=== PATIENT | female | born 1960 | race African-American/Black ===

== ENCOUNTER 2016-05-11 17:53 | Emergency (ER) | payer OTHER ==
[2016-05-11] MEDS ORDERED: TORADOL IM ONE (19:06)
[2016-05-11] MEDS ORDERED: PHENERGAN IM ONE (19:06)
[2016-05-11] MEDS ORDERED: BENADRYL IM ONE (19:06)
--- NOTE | 2016-05-11 19:09 | PROVIDER DOCUMENTATION ---
HPI-Headache - General Chief Complaint: Headache Stated Complaint: HEADACHE Time Seen by Provider: 05/11/16 18:46 Source: patient Allergies/Adverse Reactions: Patient Allergies Allergy/AdvReac Type Severity Reaction Status Date / Time metformin AdvReac DIARRHEA Verified 05/11/16 18:39 pantoprazole sodium * AdvReac DIARRHEA Verified 05/11/16 18:39 [From Protonix] Home Medications: Amlodipine [Norvasc] 5 mg PO DAILY 04/29/14 Hydrochlorothiazide 12.5 mg PO HS 04/29/14 Lisinopril 20 mg PO HS 04/29/14 Clonidine [Catapres] 0.1 mg PO HS 09/14/14 Insulin Glargine [Lantus] 25 unit SUBQ QHS 11/25/14 Multivitamin/Iron/Folic Acid [Multi Complete-Iron Tablet] 1 each PO DAILY PRAVAstatin [Pravachol] 40 mg PO QHS 11/25/14 Sitagliptin Phos/Metformin HCl [Janumet 50-1,000 mg Tablet] 1 each PO BID - History of Present Illness-Headache Nature of Presenting Problem: 55 y/o WF c/o R sided VILLA x 1 day. Pt states that she gets these VILLA in same pattern from time to time. Pt states VILLA is 7/10, and achy in nature. States took tylenol today, but did not help. Denies any N/V, vision changes. Review of Systems - Adult - REVIEW OF SYSTEMS - ADULT Constitutional: reports: no symptoms reported. denies: chills, fever Eyes: reports: no symptoms reported. denies: blurred vision, double vision Ears, Nose, Mouth & Throat: reports: no symptoms reported. denies: ear pain, nose pain Cardiovascular: reports: no symptoms reported. denies: chest pain, palpitations Respiratory: reports: no symptoms reported. denies: dyspnea on exertion, shortness of breath Gastrointestinal: reports: no symptoms reported. denies: nausea, vomiting Genitourinary: reports: no symptoms reported. denies: dysuria, frequency Musculoskeletal: reports: no symptoms reported. denies: joint pain, joint swelling Integumentary: reports: no symptoms reported. denies: nail changes, rash Neurological: reports: headache/migraines. denies: numbness, paresthesia Psychiatric: reports: no symptoms reported Endocrine: reports: no symptoms reported. denies: cold intolerance, heat intolerance Hematologic/Lymphatic: reports: no symptoms reported. denies: easy bruising, prolonged bleeding Allergic/Immunologic: reports: no symptoms reported All Other Systems: Reviewed and Negative Past History - Adult - PAST MEDICAL HISTORY-ADULT Review of Records: reports: Nursing Assessment Review, Medications Reviewed Major Childhood Illnesses: reports: denies history Cardiovascular: reports: HTN Respiratory: reports: denies history Gastrointestinal: reports: GERD, other (constipation) Obstetrical/Gynecological: reports: denies history Genitourinary: reports: denies history Musculoskeletal: reports: denies history Neurological: reports: headaches/migraines Endocrine/Immune: reports: Diabetes Other Conditions: reports: denies history - PRIOR SURGERIES/PROCEDURES Surgical/Procedure History: reports: hysterectomy - IMMUNIZATION STATUS Childhood Immunizations: UTD Flu Vaccine: UTD - FAMILY HISTORY Family History: reviewed, not pertinent Physical Exam- Neurological - Physical Exam-Neuro Initial Vital Signs Reviewed: Yes General Appearance: alert, mild distress Eye Exam: bilateral eye: normal inspection, PERRL, EOMI HENMT: normocephalic/atraumatic, moist mucous membranes. negative: hearing deficit Head Injury: no evidence of injury Neck: full range of motion, supple, normal inspection. negative: Brudzinski's sign Respiratory: no respiratory distress Abdominal Exam: normal bowel sounds, non tender, soft. negative: distended, guarding, rigid Extremity: normal range of motion, normal gait, normal capillary refill. negative: abnormal NV exam nurse discharge Exam: normal hearing, normal speech, PERRL. negative: abnormal eye position , abnormal pupil position, abnormal speech, facial asymmetry, facial droop, facial paresthesias, facial weakness, gaze palsy, hearing deficit (R), hearing deficit (L), tongue deviation to R, tongue deviation to L Coordination/Gait: normal gait Motor/Sensory: no motor deficit, no sensory deficit Neurologic: nurse discharge II-XII nml as tested. negative: aphasia, facial droop, focal weakness, motor weakness, sensory deficit Integumentary: normal color, normal turgor, warm/dry Psych/Mental Status: AL, normal mood/affect, normal thought content, normal thought process, oriented x 3 Progress - PLAN OF CARE/RESULTS Progress/Plan/Lab Results: Orders Category Date Time Status Clonidine [Catapres] Med 05/11/16 19:14 Discontinued 0.2 mg PO NOW ONE Diphenhydramine [Benadryl] Med 05/11/16 19:06 Discontinued 25 mg IM NOW ONE Hydralazine [Apresoline] Med 05/11/16 19:14 Discontinued 50 mg PO NOW ONE Ketorolac [Toradol] Med 05/11/16 19:06 Discontinued 60 mg IM NOW ONE Promethazine [Phenergan] Med 05/11/16 19:06 Discontinued 25 mg IM NOW ONE Vital Signs Temp Pulse Resp BP Pulse Ox 05/11/16 20:22 57 L 16 161/54 98 05/11/16 19:18 58 L 18 231/62 99 05/11/16 18:11 98.1 F 60 18 208/56 99 metformin Adverse Reaction (Verified 05/11/16 18:39) DIARRHEA pantoprazole sodium * [From Protonix] Adverse Reaction (Verified 05/11/16 18:39) DIARRHEA Amlodipine [Norvasc] 5 mg PO DAILY 04/29/14 Hydrochlorothiazide 12.5 mg PO HS 04/29/14 Lisinopril 20 mg PO HS 04/29/14 Clonidine [Catapres] 0.1 mg PO HS 09/14/14 Insulin Glargine [Lantus] 25 unit SUBQ QHS 11/25/14 Multivitamin/Iron/Folic Acid [Multi Complete-Iron Tablet] 1 each PO DAILY PRAVAstatin [Pravachol] 40 mg PO QHS 11/25/14 Sitagliptin Phos/Metformin HCl [Janumet 50-1,000 mg Tablet] 1 each PO BID Saline Nasal Drops [[place] Nasal Drops] 2 drop CIERA PRN PRN #1 bottle 03/23/15 Butalbital/APAP/Caffeine [Fioricet] 1 each PO Q4H PRN PRN #10 tablet 05/11/16 Discussed importance of f/u with PCP for further management of medications and discussed VILLA management with pt. Departure - Departure Time of Disposition Order: 19:07 DIAGNOSIS: Headache Qualifiers: Headache type: unspecified Headache chronicity pattern: acute headache Intractability: not intractable Qualified Code(s): R51 - Headache Disposition: HOME 01 Certified Medical Emergency: Emergent Condition: Stable Additional Instructions: Follow up with specialist for further management. Take medications as directed. Return if symptoms get worse. ED Follow Up Instructions: You have been treated by a care provider in the Emergency Department. These instructions are being provided to you so you can have an understanding of how to care for yourself upon discharge. Upon discharge from the Emergency Department, you are responsible for making arrangements for follow-up care by a physician of your choice. Take all prescribed medications as directed. Return to the Emergency Department immediately for any new or worsening symptoms. You may call the Physician Referral phone number at [phone] to obtain a list of Physicians who are taking new patients. Prescriptions: Butalbital/APAP/Caffeine [Fioricet] 1 each PO Q4H PRN PRN #10 tablet PRN Reason: Headache Referrals: Ora Swain MD [Primary Care Provider] - Kamran Latif III, MD [STAFF PHYSICIAN] - Instructions: Migraine Headache, [id number] Attestation - Physician/ Mid-level Attestation Patient care was provided by Mid-level provider (SENIOR VICE PRESIDENT/PA):: Yes Mid-level provider:: Michelle Lynch Mid-level documentation review:: The Mid-level provider documentation, treatment plan and medical decision making was reviewed by the physician who agrees with all treatment and medical decision making by the P.
[2016-05-11] MEDS ORDERED: CATAPRES PO ONE (19:14)
[2016-05-11] MEDS ORDERED: APRESOLINE PO ONE (19:14)
[2016-05-11 20:23] VITALS: BP 161/54
== END 2016-05-11 20:23 | disposition home or self-care (01) ==
LOC: ED 17:53
DX: R51 Headache (principal); E11.9 Type 2 diabetes mellitus without complications; Z79.4 Long term (current) use of insulin; Z79.899 Other long term (current) drug therapy
CPT/HCPCS: 96372; J1200; J1885; J2550

== ENCOUNTER 2016-07-19 02:00 | Emergency (ER) | payer OTHER ==
[2016-07-19] MEDS ORDERED: ZOFRAN IV ONE ×2 (02:41→03:49)
[2016-07-19] MEDS ORDERED: DILAUDID IV ONE (02:41)
[2016-07-19] MEDS ORDERED: TORADOL IV ONE (02:41)
--- NOTE | 2016-07-19 02:44 | PROVIDER DOCUMENTATION ---
HPI-Abdominal Pain/GI Problem <Jonny Reynolds JordinDana - Last Filed: 07/19/16 06:06> - General Source: patient - History of Present Illness-ABD Nature of Presenting Problems: 56 year old F presents to the ED with a cc of lower ABD pain. Pt states that she woke up around 0100. PT denies nausea, vomiting, diarrhea, and urinary complaints. PT states last bowel movement was yesterday. Abdominal Pain Onset Location: reports: RLQ, LLQ Pain Radiation: reports: no radiation Quality of Pain: reports: aching Severity in ED: reports: moderate Onset/Duration: reports: 1-3 hours ago Timing: reports: still present Activities at Onset: reports: sleep Bruising or Bleeding Gums?: No Similar Symptoms Previously?: No Recently seen or treated by another doctor?: No <Francoise Robin - Last Filed: 07/19/16 18:26> - General Chief Complaint: Constipation Stated Complaint: ABD PAIN Time Seen by Provider: 07/19/16 02:07 Allergies/Adverse Reactions: Patient Allergies Allergy/AdvReac Type Severity Reaction Status Date / Time metformin AdvReac DIARRHEA Verified 07/19/16 02:39 pantoprazole sodium * AdvReac DIARRHEA Verified 07/19/16 02:39 [From Protonix] Home Medications: Home Medication List Medication Instructions Recorded Confirmed Last Taken Type Amlodipine [Norvasc] 5 mg PO DAILY 04/29/14 07/19/16 07/18/16 History Hydrochlorothiazide 12.5 mg PO HS 04/29/14 07/19/16 07/18/16 History Lisinopril 20 mg PO HS 04/29/14 07/19/16 07/18/16 History Clonidine [Catapres] 0.1 mg PO HS 09/14/14 07/19/16 07/18/16 History Insulin Glargine [Lantus] 25 unit SUBQ QHS 11/25/14 07/19/16 07/18/16 History Multivitamin/Iron/Folic Acid 1 each PO DAILY 11/25/14 07/19/16 07/18/16 History [Multi Complete-Iron Tablet] PRAVAstatin [Pravachol] 40 mg PO QHS 11/25/14 07/19/16 07/18/16 History Sitagliptin Phos/Metformin HCl 1 each PO BID 11/25/14 07/19/16 07/18/16 History [Janumet 50-1,000 mg Tablet] Aspirin 81 mg PO DAILY 07/19/16 07/19/16 07/18/16 History Omeprazole 40 mg PO DAILY 07/19/16 07/19/16 07/18/16 History Promethazine [Phenergan] 25 mg PO Q6H PRN PRN #20 tablet 07/19/16 Unknown Rx Review of Systems - Adult - REVIEW OF SYSTEMS - ADULT Constitutional: denies: chills, fever Eyes: reports: no symptoms reported Ears, Nose, Mouth & Throat: reports: no symptoms reported Cardiovascular: reports: no symptoms reported Respiratory: denies: cough, shortness of breath Gastrointestinal: reports: abdominal pain. denies: nausea, vomiting Genitourinary: denies: dysuria, hematuria Musculoskeletal: reports: no symptoms reported Integumentary: reports: no symptoms reported Neurological: reports: no symptoms reported Psychiatric: reports: no symptoms reported Endocrine: reports: no symptoms reported Hematologic/Lymphatic: reports: no symptoms reported Allergic/Immunologic: reports: no symptoms reported All Other Systems: Reviewed and Negative <Francoise Robin - Last Filed: 07/19/16 18:26> Past History - Adult - PAST MEDICAL HISTORY-ADULT Review of Records: reports: Nursing Assessment Review, Medications Reviewed Major Childhood Illnesses: reports: denies history Cardiovascular: reports: HTN Respiratory: reports: denies history Gastrointestinal: reports: GERD, other (constipation) Obstetrical/Gynecological: reports: denies history Genitourinary: reports: denies history Musculoskeletal: reports: denies history Neurological: reports: headaches/migraines Endocrine/Immune: reports: Diabetes Other Conditions: reports: denies history - PRIOR SURGERIES/PROCEDURES Surgical/Procedure History: reports: hysterectomy - IMMUNIZATION STATUS Childhood Immunizations: UTD Flu Vaccine: UTD - FAMILY HISTORY Family History: reviewed, not pertinent - SOCIAL HISTORY Smoking: non-smoker Substance Use: none/never Alcohol Use Frequency: never <Francoise Robin - Last Filed: 07/19/16 18:26> Physical Exam-General - PHYSICAL EXAM-ADULT Initial Vital Signs Reviewed: Yes - CONSTITUTIONAL General Appearance: alert, mild distress - RESPIRATORY Respiratory: chest non-tender, lungs clear, normal breath sounds - CARDIOVASCULAR Cardiovascular: normal peripheral pulses, regular rate, rhythm, no edema - GASTROINTESTINAL (ABDOMEN) Abdominal Exam: normal bowel sounds, tenderness (LLQ) - MUSCULOSKELETAL Back Exam: CVA tenderness (left) - SKIN Integumentary: normal color, normal turgor, warm/dry - PSYCHIATRIC Psych/Mental Status: normal mood/affect, normal thought content, normal thought process, oriented x 3 <Francoise Robin - Last Filed: 07/19/16 18:26> Progress - REASSESSMENT Reassessment #1 Time Reassessed: 05:34 (pain is gone however pt developed vomiting that persists despite zofran 8 mg IV) Status: other - CT/MRI 1 CT Study: Abdomen Impression: Normal - CHANGE OF SHIFT REPORT (ED Provider) Report Given and Care Transferred to:: Dr Ge Time of Transfer: 06:01 Items Pending: Other (response to medications) <Jonny Reynolds - Last Filed: 07/19/16 06:06> Departure - Departure Certified Medical Emergency: Emergent <Jonny Reynolds - Last Filed: 07/19/16 06:06> - Departure Time of Disposition Order: 06:13 Certified Medical Emergency: Emergent <LobitoFrancoise - Last Filed: 07/19/16 18:26> - Departure DIAGNOSIS: Vomiting Qualifiers: Vomiting type: unspecified Vomiting Intractability: non-intractable Nausea presence: with nausea Qualified Code(s): R11.2 - Nausea with vomiting, unspecified Disposition: HOME 01 Condition: Good Additional Instructions: ED Follow Up Instructions: You have been treated by a care provider in the Emergency Department. These instructions are being provided to you so you can have an understanding of how to care for yourself upon discharge. Upon discharge from the Emergency Department, you are responsible for making arrangements for follow-up care by a physician of your choice. Take all prescribed medications as directed. Return to the Emergency Department immediately for any new or worsening symptoms. You may call the Physician Referral phone number at [phone] to obtain a list of Physicians who are taking new patients. Prescriptions: Promethazine [Phenergan] 25 mg PO Q6H PRN PRN #20 tablet PRN Reason: Nausea And Vomiting Referrals: Ora Swain MD [Primary Care Provider] - Instructions: Nausea and Vomiting Attestation - Scribe Verification/Attestation Scribe:: Francoise Robin Acting as Scribe for:: Jonny Reynolds Scribe documention review:: This chart was documented by a scribe and accurately reflects the service the provider performed and the decisions made by the provider. <Francoise Robin - Last Filed: 07/19/16 18:26> Physician Attestation
[2016-07-19 03:37] LABS: MANUAL DIFF NEEDED? NO
[2016-07-19 03:42] LABS: BASO% 0.1 % (0.0-0.8); EOS# 0.06 X1000 (0.0-0.7); EOS% 0.7 % (0.0-10.0); HEMATOCRIT 34.5 % (37.0-47.0); HEMOGLOBIN 10.9 g/dL (12.0-16.0); IMM GRAN# 0.03 X1000 (0.0-0.04); IMM GRAN% 0.3 % (0.0-0.5); LYMPH% 30.6 % (20.5-51.1); MCH 25.7 PG (27-31); MCHC 31.6 g/dL (33-37); MCV 81.4 FL (81-99); MONO# 0.66 X1000 (0.11-0.59); MONO% 7.2 % (1.7-9.3); MPV 11.8 FL (7.4-10.4); NEUT% 61.1 % (42.2-75.2); PLT 203 X1000 (130-400); RBC 4.24 XMIL (4.2-5.4)
[2016-07-19 04:02] LABS: ALBUMIN 3.5 g/dL (3.5-5.0); CALCIUM 8.9 mg/dL (8.8-10.2); POTASSIUM 3.7 mmol/L (3.5-5.1); TOTAL BILIRUBIN 0.22 mg/dL (0.20-1.00); TOTAL PROTEIN 7.1 g/dL (6.3-8.3)
[2016-07-19 04:19] LABS: URINE CULTURE NEEDED? NO; URINE MICRO REVIEW NEEDED? NO; URINE SOURCE CLEAN CATCH
[2016-07-19 04:20] LABS: BILIRUBIN URINE NEGATIVE (NEGATIVE); BLOOD URINE TRACE (NEGATIVE); COLOR STRAW; GLUCOSE URINE 100 mg/dL (NEGATIVE); LEUKOCYTES URINE NEGATIVE (NEGATIVE); NITRITE URINE NEGATIVE (NEGATIVE); PROTEIN URINE 300 mg/dL (NEGATIVE); SP GRAVITY URINE 1.008; TURBIDITY URINE CLEAR (CLEAR); UROBILINOGEN URINE NORMAL (NORMAL)
[2016-07-19 04:21] LABS: UR EPITHELIAL CELLS <10 /HPF (<10); URINE BACTERIA NEGATIVE /HPF; URINE RBC <10 /HPF (<10); URINE WBC <10 /HPF (<10)
[2016-07-19] MEDS ORDERED: SODIUM CHLORIDE 0.9% INJ ONE (05:22)
[2016-07-19] MEDS ORDERED: PHENERGAN IV ONE (05:22)
[2016-07-19] MEDS ORDERED: NS 500 ML IV ONE (05:22)
[2016-07-19 05:58] VITALS: BP 140/75
--- NOTE | 2016-07-19 08:02 | Diag Imaging Result Document ---
PROCEDURE NAME: ABDOMEN FLAT/UPRIGHT - 07/19/2016 ABDOMEN, 2 VIEWS: COMPARISON: 09/01/2015. FINDINGS: There is a nonobstructive bowel gas pattern. No free air or abnormal calcifications. IMPRESSION: No acute disease.
--- NOTE | 2016-07-19 09:17 | Diag Imaging Result Document ---
PROCEDURE NAME: ABDOMEN/PELVIS W/O CONTRAST - 07/19/2016 CT ABDOMEN AND PELVIS WITHOUT CONTRAST: COMPARISON: 11/04/2014. FINDINGS: Mild bronchial wall thickening and reticular opacities at the lung bases are again noted and are essentially stable as compared to the previous study, assumed to be chronic. There is a small amount of pericardial fluid that is essentially stable. There is a nonspecific 1.2 cm renal hypodensity at the upper pole on the left that is stable. It is likely a cyst as was seen on the previous study. There are no renal or ureteral stones identified, and there is no evidence of acute obstructive uropathy. The urinary bladder is unremarkable. The appendix appears normal. Otherwise, no focal inflammatory changes, free abdominal gas, or free fluid is identified. There is no evidence of bowel obstruction. There is no evidence of significant diverticulosis coli or diverticulitis. The remainder of the solid viscera of the abdomen and pelvis and the remainder of the GI tract is essentially unremarkable. IMPRESSION: Stable abdomen with no definite acute pathology.
== END 2016-07-19 06:55 | disposition home or self-care (01) ==
LOC: ED 02:00
DX: R11.2 Nausea with vomiting, unspecified (principal); R10.31 Right lower quadrant pain; R10.32 Left lower quadrant pain; K59.00 Constipation, unspecified; R10.814 Left lower quadrant abdominal tenderness; I10 Essential (primary) hypertension; K21.9 Gastro-esophageal reflux disease without esophagitis; E11.9 Type 2 diabetes mellitus without complications; Z79.899 Other long term (current) drug therapy; Z79.82 Long term (current) use of aspirin; Z79.4 Long term (current) use of insulin
CPT/HCPCS: 74020; 74176; 80053; 81001; 83690; 85025; J1170; J1885; J2405; J2550; J7040

== ENCOUNTER 2016-11-27 08:12 | Inpatient (IN) ==
[2016-11-27] MEDS ORDERED: NS 1,000 ML IV ONE (08:48)
[2016-11-27 09:47] LABS: MANUAL DIFF NEEDED? NO; URINE CULTURE NEEDED? NO; URINE MICRO REVIEW NEEDED? NO; URINE SOURCE CLEAN CATCH
[2016-11-27 09:48] LABS: BILIRUBIN URINE NEGATIVE (NEGATIVE); BLOOD URINE TRACE (NEGATIVE); COLOR YELLOW; GLUCOSE URINE TRACE mg/dL (NEGATIVE); LEUKOCYTES URINE NEGATIVE (NEGATIVE); NITRITE URINE NEGATIVE (NEGATIVE); PROTEIN URINE 300 mg/dL (NEGATIVE); TURBIDITY URINE HAZY (CLEAR); UR EPITHELIAL CELLS <10 /HPF (<10); URINE BACTERIA NEGATIVE /HPF; URINE RBC <10 /HPF (<10); URINE WBC <10 /HPF (<10); UROBILINOGEN URINE NORMAL (NORMAL)
[2016-11-27 09:49] LABS: EOS# 0.05 X1000 (0.0-0.7); EOS% 0.5 % (0.0-10.0); HEMOGLOBIN 11.5 g/dL (12.0-16.0); IMM GRAN# 0.03 X1000 (0.0-0.04); IMM GRAN% 0.3 % (0.0-0.5); LYMPH# 1.86 X1000 (1.2-3.4); LYMPH% 19.9 % (20.5-51.1); MCHC 31.9 g/dL (33-37); MCV 81.4 FL (81-99); MONO# 0.62 X1000 (0.11-0.59); MONO% 6.6 % (1.7-9.3); MPV 12.5 FL (7.4-10.4); NEUT% 72.7 % (42.2-75.2); PLT 198 X1000 (130-400); RBC 4.42 XMIL (4.2-5.4)
[2016-11-27 10:09] LABS: ALBUMIN 3.1 g/dL (3.5-5.0); CALCIUM 8.6 mg/dL (8.8-10.2); MAGNESIUM 1.9 mg/dL (1.5-2.7); POTASSIUM 4.3 mmol/L (3.5-5.1); TOTAL BILIRUBIN 0.29 mg/dL (0.20-1.00); TOTAL PROTEIN 6.2 g/dL (6.3-8.3)
--- NOTE | 2016-11-27 10:50 | PROVIDER DOCUMENTATION ---
This chart was entered by Abdi Romo Scribe, acting as scribe for Shell Dye MD. HPI-Abdominal Pain/GI Problem - General Chief Complaint: Diarrhea Stated Complaint: ABD PAIN,DIARRHEA Time Seen by Provider: 11/27/16 08:23 Source: patient Allergies/Adverse Reactions: Patient Allergies Allergy/AdvReac Type Severity Reaction Status Date / Time metformin AdvReac DIARRHEA Verified 11/27/16 09:47 pantoprazole sodium * AdvReac DIARRHEA Verified 11/27/16 09:47 [From Protonix] Home Medications: Home Medication List Medication Instructions Recorded Confirmed Last Taken Type Amlodipine [Norvasc] 5 mg PO DAILY 04/29/14 10/17/16 10/17/16 History Hydrochlorothiazide 12.5 mg PO HS 04/29/14 10/17/16 10/16/16 History Lisinopril 20 mg PO HS 04/29/14 10/17/16 10/16/16 History Clonidine [Catapres] 0.1 mg PO HS 09/14/14 10/17/16 10/16/16 History Insulin Glargine [Lantus] 25 unit SUBQ QHS 11/25/14 10/17/16 10/16/16 History Multivitamin/Iron/Folic Acid 1 each PO DAILY 11/25/14 10/17/16 10/17/16 History [Multi Complete-Iron Tablet] PRAVAstatin [Pravachol] 40 mg PO QHS 11/25/14 10/17/16 10/16/16 History Sitagliptin Phos/Metformin HCl 1 each PO BID 11/25/14 10/17/16 10/17/16 History [Janumet 50-1,000 mg Tablet] Aspirin 81 mg PO DAILY 07/19/16 10/17/16 10/17/16 History Omeprazole 40 mg PO DAILY 07/19/16 10/17/16 10/17/16 History Promethazine [Phenergan] 25 mg PO Q6H PRN PRN #20 tablet 07/19/16 10/17/1610/17 Rx Betamethasone/Propylene Glyc 15 gm TP BID #1 cream..g. 10/17/16 Unknown Rx [Diprolene AF 0.05% Cream] - History of Present Illness-ABD Nature of Presenting Problems: Patient is a 56 y/o F that presents with generalized abdominal cramping with diarrhea x 24 hours. No n/v, fever/chills, or urinary symptoms. 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 She has had 10 plus episodes of diarrhea. Denies recent antibiotic use. Patient has been feeling bad since August of this year. Abdominal Pain Onset Location: reports: generalized abdomen Pain Radiation: reports: no radiation Quality of Pain: reports: aching, cramping Severity in ED: reports: moderate Onset/Duration: reports: abrupt, 24 hours ago Timing: reports: still present, constant Activities at Onset: reports: none Modifying Factors: improves with: nothing Associated Symptoms: reports: diarrhea. denies: back/neck pain, chest pain, diaphoresis, dizziness, fever/chills, genitourinary problems, nausea, shortness of breath, vomiting Similar Symptoms Previously?: No Recently seen or treated by another doctor?: No Review of Systems - Adult - REVIEW OF SYSTEMS - ADULT Constitutional: denies: chills, fever Eyes: reports: no symptoms reported Ears, Nose, Mouth & Throat: denies: ear discharge, ear pain, sinus problem, throat pain, throat swelling Cardiovascular: denies: chest pain, palpitations, syncope Respiratory: denies: cough, shortness of breath, wheezing Gastrointestinal: reports: abdominal pain, diarrhea. denies: nausea, vomiting Genitourinary: denies: dysuria, frequency, hematuria, urgency Musculoskeletal: reports: no symptoms reported Integumentary: reports: no symptoms reported Neurological: reports: no symptoms reported Psychiatric: reports: no symptoms reported Endocrine: reports: no symptoms reported Hematologic/Lymphatic: reports: no symptoms reported Allergic/Immunologic: reports: no symptoms reported All Other Systems: Reviewed and Negative Past History - Adult - PAST MEDICAL HISTORY-ADULT Review of Records: reports: Old Records Reviewed, Nursing Assessment Review, Medications Reviewed Cardiovascular: reports: HTN, hyperlipidemia Gastrointestinal: reports: GERD, other (constipation) Neurological: reports: headaches/migraines Endocrine/Immune: reports: Diabetes - PRIOR SURGERIES/PROCEDURES Surgical/Procedure History: reports: hysterectomy - IMMUNIZATION STATUS Childhood Immunizations: UTD Flu Vaccine: UTD - FAMILY HISTORY Family History: reviewed, not pertinent - SOCIAL HISTORY Smoking: non-smoker Living Situation: family Physical Exam-General - PHYSICAL EXAM-ADULT Initial Vital Signs Reviewed: Yes - CONSTITUTIONAL General Appearance: alert, mild distress - EYES Eyes: PERRL/EOMI, pink conjunctivae - HEAD, EARS, NOSE, MOUTH & THROAT HENMT: normocephalic/atraumatic, moist mucous membranes, normal ENT inspection - NECK Neck: full range of motion, normal inspection - RESPIRATORY Respiratory: lungs clear, normal breath sounds, no respiratory distress, no accessory muscle use - CARDIOVASCULAR Cardiovascular: regular rate, rhythm, no edema, no murmur - GASTROINTESTINAL (ABDOMEN) Abdominal Exam: normal bowel sounds, soft, no organomegaly, no pulsatile mass, tenderness (diffusely generalized) - MUSCULOSKELETAL Back Exam: no CVA tenderness, no vertebral tenderness Extremity: normal range of motion, no calf tenderness, normal capillary refill, pedal edema (1 to 2 plus pitting at lower legs) - SKIN Integumentary: normal color, warm/dry - NEUROLOGIC Neurologic: exhibits curator II-XII nml as tested, no motor/sensory deficits - PSYCHIATRIC Psych/Mental Status: normal mood/affect, normal thought content, normal thought process, oriented x 3 Progress - PLAN OF CARE/RESULTS Progress/Plan/Lab Results: Vital Signs - 8 hr 11/27/16 08:20 Temperature 98 F Pulse Rate 67 Respiratory Rate 16 Blood Pressure 170/80 O2 Sat by Pulse Oximetry 100 Orders Category Date Time Status Saline Loc DIRECTED Care 11/27/16 08:48 Active NPO Diet 11/27/16 08:[address] ABD/PELVIS W/ IV CONT ONLY [CT] Stat Exams 11/27/16 08:48 Ordered AMYLASE [CHEM] Stat Lab 11/27/16 08:48 Uncollected CBC WITH ELECTRONIC DIFF [HEME] Stat Lab 11/27/16 08:48 Uncollected CK PROFILE [SP CHEM] Stat Lab 11/27/16 08:48 Uncollected COMPREHENSIVE METABOLIC PANEL [CHEM] Stat Lab 11/27/16 08:48 Uncollected LIPASE [CHEM] Stat Lab 11/27/16 08:48 Uncollected MAGNESIUM [CHEM] Stat Lab 11/27/16 08:48 Uncollected PRO B-NATRIURETIC PEPTIDE Stat Lab 11/27/16 08:48 Uncollected TROPONIN T Stat Lab 11/27/16 08:48 Uncollected URINALYSIS W/POSS RFLX CULT-1 [URINALYSIS] Stat Lab 11/27/16 08:48 Uncollected 0.9% Sodium Chloride Inj [Ns] 1,000 ml Med 11/27/16 08:48 Active IV 999 mls/hr 1022-Renal Stone search CT added 1046- speaking with Jadyn CASAREZ with hospitalist for possible admission Result Diagrams: 11/27/16 09:30 11/27/16 09:30 - CT/MRI 1 CT Study: Renal Stone Impression: Abnormal CT Results: negative stones, trace ascities, superior mesenteric artery vascular dz - CONSULTS/PCP/HOSPITALIST Notification #1 *Consult/PCP/Hospitalist*: Jadyn CASAREZ( hospitalist) Time Discussed: 10:47 Reason/Comments: accepted for Consult Disposition: Will see in ED, Admit Departure - Departure Date of Disposition Decision: 11/27/16 Time of Disposition Decision: 10:47 DIAGNOSIS: Diarrhea, Acute renal failure Disposition: ADMITTED INPATIENT 09 Certified Medical Emergency: Emergent Condition: Stable Referrals and Follow-Ups: None,PCP [Primary Care Provider] - - Critical Care Note This patient required my direct & personal management of CC.: No This chart was documented by the indicated scribe, (Abdi Romo, Scribe) and accurately reflects the services I performed and decisions made by me, Shell Dye MD, as attested by the provider's signature.
--- NOTE | 2016-11-27 11:03 | Diag Imaging Result Doc PS360 ---
RENAL STONE SEARCH - 11/27/2016 INDICATION: Abd pain TECHNIQUE: A CT dose reduction protocol was used. COMPARISON: 07/19/2016 FINDINGS: There is a small pericardial effusion. Heart size is top normal. There is trace ascites. No radiodense renal stones. No hydronephrosis or hydroureter. Stable small cyst in the left kidney. There is stable extensive vascular calcification of the mesenteric arteries particularly the superior mesenteric artery. No bowel obstruction or free air. Normal appendix. Urinary bladder and rectum are normal. Uterus is absent. There are moderate degenerative changes of the spine. No acute or suspicious bony lesion. IMPRESSION: Negative for renal stones. Trace ascites. Superior mesenteric artery vascular disease. Correlate for possible mesenteric ischemia. Electronically signed by Virgilio Leos 11/27/2016 11:01 AM
[2016-11-27 12:17] LABS: IRON SATURATION 21 %; TIBC 226 ug/dL; TOTAL IRON 47 ug/dL (49-151); UNBOUND IRON 179 ug/dL (112-346)
[2016-11-27 12:47] LABS: FERRITIN 98 ng/mL (13-150)
[2016-11-27 13:12] LABS: UR CREAT RANDOM 125.9 mg/dL (11-20)
[2016-11-27] MEDS ORDERED: TYLENOL PO PRN (14:28)
[2016-11-27] MEDS ORDERED: ZOFRAN IV PRN (14:28)
--- NOTE | 2016-11-27 15:52 | Diag Imaging Result Doc PS360 ---
US ABDOMEN-COMPLETE - 11/27/2016 INDICATION: abd pain; kate; check for DARSHAN COMPARISON: CT abdomen pelvis from earlier today FINDINGS: The liver, gallbladder, spleen, pancreas, and both kidneys are normal. There is a small left renal cyst measuring 1.5 cm. Common bile duct measures 5 mm. Aorta, IVC, and main portal vein are patent. IMPRESSION: Negative exam. Electronically signed by Virgilio Leos 11/27/2016 3:50 PM
--- NOTE | 2016-11-27 15:54 | Diag Imaging Result Doc PS360 ---
DUPLEX RENAL ARTY OR VEIN LMTD - 11/27/2016 INDICATION: abd pain; r/o DARSHAN TECHNIQUE: Bilateral renal artery Doppler ultrasound COMPARISON: CT abdomen pelvis from earlier today FINDINGS: The resistive indices of the segmental renal arteries are severely abnormal bilaterally. This measures 0.85 on the right and 0.88 on the left. These are elevated values consistent with chronic medical renal disease. Renal sizes are normal. The right kidney measures 11.4 x 3.8 x 4.6 cm. The left kidney measures 10.3 x 4.1 x 5.5 cm. Cortex measures about 9 mm bilaterally. No mass or hydronephrosis. There is a left renal cyst measuring 1.5 cm. The urinary bladder is normal. IMPRESSION: Elevated resistive indices of the segmental renal arteries bilaterally compatible with chronic medical renal disease. Electronically signed by Virgilio Leos 11/27/2016 3:52 PM
--- NOTE | 2016-11-27 16:54 | HISTORY AND PHYSICAL ---
PRIMARY CARE PROVIDER: Used to be but she has not gone to her in a very long time. CHIEF COMPLAINT: Abdominal pain and diarrhea. HISTORY OF PRESENT ILLNESS: Ms. Tameka Slade is a 56-year-old female with a medical history of CKD, hypertension, hyperlipidemia, constipation, diabetes mellitus type 2 and a TIA who states that normally her constipation is 1 bowel movement about every 3 days. On Sunday night she started having abdominal pain generalized but increased in the right lower quadrant during diarrhea. She states that she had 11 bouts of diarrhea yesterday dark green in color. No blood. Workup revealed a noncontrast renal CT which was negative for renal stones, had trace ascites but the superior mesenteric artery vascular disease and needed to correlate for possible mesenteric ischemia. Currently we are waiting for a lactate level. Other findings is she has some mild HORTENCIA on top of CKD stage 3 secondary to dehydration. Will do IV fluid hydration stat, will admit to the medical floor. PAST MEDICAL HISTORY: CKD stage 3, hypertension, iron deficiency anemia, hyperlipidemia, GERD, constipation, migraines and headaches, diabetes mellitus type 2, TIA 3 years ago. SURGICAL HISTORY: Hysterectomy. SOCIAL HISTORY: Denies alcohol, tobacco or illicit drug use. 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 FAMILY HISTORY: Mother had type 2 diabetes and hypertension. Father had myocardial infarction x2. She did not know her father. REVIEW OF SYSTEMS: Fourteen point review of systems were complete and all were negative except for those mentioned above HPI. ALLERGIES: Metformin, pantoprazole. HOME MEDICATIONS: Norvasc 5 mg p.o. daily, aspirin 81 mg p.o. daily, clonidine 0.1 mg p.o. nightly, hydrochlorothiazide 12.5 mg p.o. nightly, Lantus 25 units subcu nightly , lisinopril 20 mg p.o. nightly, multivitamin with iron and folic acid 1 tab p.o. daily, omeprazole 40 mg p.o. daily, pravastatin 40 mg p.o. nightly, Janumet with sitagliptin and metformin mixed 50-1000 one tab p.o. twice daily. PHYSICAL EXAMINATION: VITAL SIGNS: Temperature is 98.1 degrees, heart rate 55, respiratory rate 16, blood pressure 116/84, O2 saturation 100% on room air, she is 5 feet 1 inches tall, 184 pounds with a BMI 34.8. GENERAL: Ms. Tameka Slade is a 56-year-old female. She is in no acute distress. She is able answer questions appropriately. HEENT: Atraumatic, normocephalic. There is some puffiness around her eyes. Mucous membranes are dry. Extraocular movements intact. Pupils are equal and reactive. NECK: No JVD or carotid bruits noted. CARDIOVASCULAR: S1, S2. Regular rate and rhythm. No rubs, gallops, murmurs. PULMONARY: Clear to auscultate, bilateral breath sounds. No accessory muscle use or work of breathing noted. GI: Soft, positive bowel sounds x4 but tender in all 4 quadrants. EXTREMITIES: Trace lower extremity edema, +2 dorsalis and radial pulses. NEURO: A and O x4. Moves all extremities equally. SKIN: Warm, dry, intact. LABORATORY DATA: White blood cells 9000, hemoglobin 11, hematocrit 36, platelet count 198,000. Sodium 141, potassium 4.3, BUN 39, creatinine 3.1, GFR 19, glucose 114, calcium 8.6, magnesium 1.9. Iron levels low at 47, total iron binding capacity is 226 with a saturation of 21, unsaturated is 179. Ferritin 98, vitamin B12 is 286 and folate is 7.5, total bilirubin 0.29, AST 13, ALT 8, CK 78, troponin less than 0.01, proBNP is 890, albumin 3.1, amylase 41, lipase 10, plasma lactate 1.5. Urinalysis 300 protein, trace blood. Urine creatinine is 125.9, urine sodium 28 and urine urea is 474. IMAGING: Renal CT negative for renal stone, trace ascites, superior mesenteric artery vascular disease correlate for possible mesenteric ischemia. ASSESSMENT AND PLAN: 1. Abdominal pain with severe diarrhea, the renal CT shows a renal did show some superior mesenteric artery vascular disease to correlate possible mesenteric ischemia. Currently lactate is normal. Vital signs are stable. She denies any blood in the stool but will go ahead and check for blood in stool. Will send for C. difficile and stool cultures and will do an ultrasound. 2. Acute kidney injury with chronic kidney disease stage 3, will do IV fluid hydration for now. She is dehydrated secondary to diarrhea over the last 2 days. Urine labs have been ordered. 3. Hyperlipidemia. Continue statin. 4. Hypertension. Hold SELENE and hydrochlorothiazide, continue with clonidine. 5. Diabetes mellitus type 2. Do pattern blood glucoses and sliding scale insulin. 6. Iron deficiency anemia. Continue with the multivitamin that includes iron and folic acid. 7. Deep venous thrombosis prophylaxis. SCDs. 8. Gastroesophageal reflux disease and gastrointestinal prophylaxis. Continue with omeprazole. Dictated by HERMELINDO Suarez for Nahum Cao MD cc: HERMELINDO Suarez MD I have seen and examined patient and I agree with the above evaluation and plan. MTDD
[2016-11-27] MEDS: NS 1,000 ML IV SCH (17:21)
[2016-11-27] MEDS: HUMULIN R SUBQ SCH ×2 (18:16→21:52)
--- NOTE | 2016-11-27 18:56 | CONSULTATION ---
DATE OF CONSULTATION: 11/27/2016 HISTORY OF PRESENT ILLNESS: This is a 56-year-old, female who has chronic kidney disease, hypertension, diabetes, history of TIA, who says that every 3-4 months has a bout of abdominal pain and diarrhea. She says previously this happened 4 months ago, no blood with this. Normally she is constipated. She says that she develops pain, has diarrhea and then after a couple of days this resolves. She denies any weight loss. She tolerates her diet through this with no nausea or vomiting. She has no fear of food and states she has no pain when she eats. PAST MEDICAL HISTORY: 1. CKD stage 3. 2. Hypertension. Systolic blood pressure has been 200 since she has been here. 3. Iron-deficiency anemia. 4. Hyperlipidemia. 5. GERD. 6. Constipation. 7. Chronic diarrhea. 8. Migraines. 9. Diabetes. 10. TIA 3 years ago. SURGICAL HISTORY: She had a laparoscopic hysterectomy. SOCIAL HISTORY: No tobacco, alcohol, or drugs. She is and has 3 children. 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 FAMILY HISTORY: Diabetes, hypertension, coronary disease. REVIEW OF SYSTEMS: Ten point negative except for what is mentioned in HPI. MEDICATIONS: Denies any anticoagulant. Otherwise numerous antihypertensive and diabetic medications. PHYSICAL EXAMINATION: Vital Signs: Temp is 98.4 degrees, pulse 66, blood pressure 203/58, O2 saturation 100% on room air. General: She is alert, in no acute distress. She is eating dinner. Cardiovascular: Normal rate, regular rhythm. Pulmonary: No increased work of breathing. Abdomen: Soft, nontender, nondistended. Extremities: There is trace lower extremity edema but otherwise well-perfused with no jaundice. HEENT: I do not see any cervical or axillary lymphadenopathy. LABS: White count 9, hematocrit 36, creatinine is 3.1, glucose 114, bilirubin 0.29. AST and ALT are normal. Alkaline phosphatase mildly elevated at 106. Troponins are negative. Amylase 41, lipase 10, lactic acid 1.5. Urinalysis with trace blood. CT scan renal protocol with no IV contrast is negative for stones. It shows trace ascites and some calcific vascular disease in the superior mesenteric artery. Abdominal ultrasound is negative. Renal ultrasound shows elevated resistive indices of the segmental renal arteries compatible with chronic medical renal disease. ASSESSMENT AND PLAN: This is a 56-year-old, female who presents with intermittent diarrhea. I see no signs on examination or clinical findings, imaging or labs to suggest acute or chronic mesenteric ischemia. She had a colonoscopy several years ago. I think this would be a reasonable place to start given her change in bowel habits although she denies any bleeding. I would otherwise pursue the usual workup for diarrhea including infectious etiologies to potential colitis and engaging GI Medicine to evaluate her. She is apparently known to Dr. Dunham previously. I would recommend that she have another colonoscopy at some point. cc: Alejandra Cabello MD
[2016-11-27] MEDS ORDERED: PNEUMOVAX 23 IM ONE (20:15)
[2016-11-27] MEDS ORDERED: INSULIN PEN NEEDLES ONE (21:22)
[2016-11-27] MEDS: LANTUS SUBQ SCH (21:53)
[2016-11-27] MEDS: PRILOSEC PO SCH (21:53)
[2016-11-27] MEDS: PRAVACHOL PO SCH (21:54)
[2016-11-27] MEDS: CATAPRES PO SCH (21:54)
[2016-11-28 05:38] LABS: MANUAL DIFF NEEDED? NO
[2016-11-28 05:44] LABS: BASO% 0.2 % (0.0-0.8); EOS# 0.06 X1000 (0.0-0.7); EOS% 0.9 % (0.0-10.0); HEMATOCRIT 32.2 % (37.0-47.0); HEMOGLOBIN 9.9 g/dL (12.0-16.0); LYMPH# 1.65 X1000 (1.2-3.4); MCH 25.2 PG (27-31); MCHC 30.7 g/dL (33-37); MCV 81.9 FL (81-99); MONO# 0.51 X1000 (0.11-0.59); MONO% 7.7 % (1.7-9.3); MPV 11.8 FL (7.4-10.4); NEUT% 66.2 % (42.2-75.2); PLT 185 X1000 (130-400); RBC 3.93 XMIL (4.2-5.4)
[2016-11-28 05:56] LABS: ALBUMIN 2.8 g/dL (3.5-5.0); CALCIUM 7.9 mg/dL (8.8-10.2); MAGNESIUM 1.7 mg/dL (1.5-2.7); POTASSIUM 3.7 mmol/L (3.5-5.1); TOTAL BILIRUBIN 0.23 mg/dL (0.20-1.00); TOTAL PROTEIN 5.7 g/dL (6.3-8.3)
[2016-11-28 05:58] LABS: INR 1.04; PROTIME 10.9 Seconds (9.2-11.7); PTT 27.1 Seconds (22.0-36.0)
[2016-11-28] MEDS: HUMULIN R SUBQ SCH ×3 (07:00→16:50)
[2016-11-28] MEDS: PRILOSEC PO SCH ×2 (08:41→20:12)
[2016-11-28] MEDS: LEVAQUIN PO SCH (08:41)
[2016-11-28] MEDS: CENTRUM TABLET PO SCH (08:41)
[2016-11-28] MEDS: ASPIRIN PO SCH (08:41)
[2016-11-28] MEDS: FLAGYL PO SCH ×2 (13:38→20:13)
--- NOTE | 2016-11-28 13:53 | CONSULTATION ---
DATE OF CONSULTATION: 11/28/2016 REASON FOR REFERRAL: Abdominal pain and diarrhea. HISTORY OF PRESENT ILLNESS: This is a 56-year-old, -[place] female, who reports a history of constipation versus diarrhea. Normally, she has problems with constipation. She may go 4 days up to a week without a bowel movement. She reports episodes of diarrhea. This may not happen but every several months. Sometimes, she may go 4 months without diarrhea. This time, she reported onset of diarrhea on Sunday. She reported 11 loose stools on Sunday, 4 loose stools on Sunday. She has not had any bowel movement today. We are awaiting stool studies. She denies visible blood in the stool or black stool. She states the stool was dark green in color. At home, she does not take laxatives for constipation. Her last colonoscopy was in 04/[address] Dunham that showed a rectal polyp and hemorrhoids. She has had imaging studies. A renal CT scan showed no stones, trace ascites, superior mesenteric artery and vascular disease. No bowel obstruction. Moderate degenerative changes of the spine and a stable cyst in the left kidney and abdominal ultrasound showed negative exam. There was a stable left renal cyst measuring 1.5 cm. Aorta renal ultrasound showed chronic medical renal disease. She does report episodes of abdominal pain prior to her diarrhea. PAST MEDICAL HISTORY: Chronic kidney disease, hypertension, history of anemia, hyperlipidemia, GERD, constipation, migraines, diabetes type ,2. History of TIA. SURGICAL HISTORY: Hysterectomy. Last colonoscopy was in 04/2013 that showed rectal polyp and hemorrhoids. ALLERGIES: Metformin causing diarrhea. Protonix causes diarrhea. HOME MEDICATIONS: 1. Janumet twice daily. 2. Pravachol 40 mg every night. 3. Omeprazole 40 mg daily. 4. Multivitamin daily. Lisinopril 5. 20 mg every night. 6. Lantus 25 units every night. 7. Hydrochlorothiazide 12.5 every night Catapres 0.1 mg every night. 8. Aspirin 81 mg daily. 9. Norvasc 5 mg daily. SOCIAL HISTORY: Denies alcohol or tobacco use. She has a fiancee. She has 3 children. 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 FAMILY HISTORY: Mother had type 2 diabetes and hypertension. Father had VT. REVIEW OF SYSTEMS: Per HPI. PHYSICAL EXAMINATION: Vital Signs: Temperature 98.8 degrees, pulse 55, respirations 16, blood pressure 150/62. General: Patient is awake, alert, in no acute distress. HEENT: Normocephalic, atraumatic. Pupils equal, round, reactive to light. Sclerae nonicteric. Cardiovascular: Regular rate and rhythm. Respiratory: Lung sounds clear bilaterally. Abdomen: Soft, nontender. Positive bowel sounds. DIAGNOSTIC RESULTS: Laboratory: Hematology and white count 6.59, hemoglobin 9.9, hematocrit 32.2. MCV 81.9. Coagulation ProTime 10.9, INR 1.04. PTT 27.1. Chemistry: Sodium 144, potassium 3.7, chloride 112, CO2 of 22, BUN 31, creatinine 2.4, glucose 85. Iron 47, TIBC 226, % saturation 21, ferritin 98. Total bilirubin 0.23, AST 12, ALT 7, alkaline phosphatase 98, amylase 41, lipase 10. Folate 7.5, TSH 5.65. IMAGING STUDIES: As described above. ASSESSMENT AND PLAN: 1. Abdominal pain. 2. Diarrhea. 3. History of constipation. 4. Acute versus chronic kidney disease. 5. Hypertension. 6. Diabetes. 7. Iron-deficiency anemia. 8. Gastroesophageal reflux disease. 9. Continue supportive care. We are awaiting stool collection for stool studies. PLANS: Further plans will be made as needed. The patient has seen Dr. Dunham before. She returns tomorrow. 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 Her last colonoscopy was in 2013. She may need repeat colonoscopy. May need to treat constipation. Diarrhea can be related to overflow diarrhea related to constipation. Further plans will be made as needed. Thank you for this consultation. I have discussed this case with Dr. Hernadez. Dictated by HERMELINDO Lozano for Melvin Hernadez MD cc: HERMELINDO Garcia MD
[2016-11-28] MEDS ORDERED: CYANOCOBALAMIN IM ONE (14:19)
--- NOTE | 2016-11-28 14:40 | PROGRESS NOTE ---
DATE: 11/28/2016 SUBJECTIVE: Patient reports not having any more episodes diarrhea or abdominal pain at all. Denies any fever or chills. OBJECTIVE: Vitals: Temperature 98.8 degrees, heart rate 55, respiratory 16, blood pressure 150/62, O2 saturation 100% on room air. General Examination: Is this is a 56-year-old female lying in bed in no acute distress. HEENT: Head is normocephalic, atraumatic. Anicteric sclerae and pale conjunctivae. Mucous membranes moist. Neck: Supple. No JVD noted. No carotid bruits. No lymphadenopathy. No thyromegaly. Cardiovascular: S1, S2 heard. No murmurs, gallops, or rubs. Regular rate and rhythm. Respiratory: Clear bilaterally to auscultation. No work of breathing or using accessory muscles. Abdomen: Soft, nontender to palpation. A little bit distended but no signs of peritoneal irritation. Bowel sounds present. No organomegaly. Extremities: No clubbing, cyanosis or edema. Peripheral pulses present in both legs. Neurological: Patient alert oriented x3. Moves 4 extremities. LABORATORY DATA: The hemoglobin is 9.9 with normal platelets, the renal function is 2.4 today, also folate is 7.5 which is low and borderline low vitamin B12 of 286. ASSESSMENT AND PLAN: 1. Abdominal pain with severe diarrhea. Actually the labs and imaging at admission showed that this patient may have an ischemic colitis so we have checked lactate which is normal and also we have consulted general surgery who also does not think this patient had any mesenteric ischemia. Patient pain is gone as well as diarrhea. At this time we will plan to continue watching this patient. Sample for C. difficile has not been sent yet because this patient stopped having any diarrhea. 2. Acute on chronic kidney disease. With fluid hydration the creatinine is getting better. Will continue checking BMP. 3. Hyperlipidemia, will continue with the statin. 4. Hypertension. SELENE inhibitors and hydrochlorothiazide has been stopped because of renal dysfunction ands patient is receiving just clonidine. 5. Diabetes mellitus type 2. Will continue checking Accu-Cheks before meals and at bedtime. 6. Iron deficiency anemia. Will continue with iron, folic acid supplementation. cc: Owen Gil MD
[2016-11-28] MEDS: FOLIC ACID PO SCH (16:01)
[2016-11-28] MEDS: PRAVACHOL PO SCH (20:13)
[2016-11-28] MEDS: NS 1,000 ML IV SCH (20:13)
[2016-11-28] MEDS: CATAPRES PO SCH (20:13)
[2016-11-29] MEDS: HUMULIN R SUBQ SCH ×4 (01:31→18:00)
[2016-11-29] MEDS: LANTUS SUBQ SCH (01:31)
[2016-11-29] MEDS: FLAGYL PO SCH ×3 (05:35→21:30)
[2016-11-29] MEDS: NS 1,000 ML IV SCH ×3 (05:35→16:49)
[2016-11-29 07:58] LABS: MANUAL DIFF NEEDED? NO
[2016-11-29 08:01] LABS: BASO% 0.2 % (0.0-0.8); EOS# 0.06 X1000 (0.0-0.7); EOS% 1.1 % (0.0-10.0); HEMATOCRIT 30.5 % (37.0-47.0); HEMOGLOBIN 9.6 g/dL (12.0-16.0); LYMPH% 26.8 % (20.5-51.1); MCH 25.7 PG (27-31); MCHC 31.5 g/dL (33-37); MCV 81.6 FL (81-99); MONO% 7.1 % (1.7-9.3); MPV 11.5 FL (7.4-10.4); NEUT% 64.8 % (42.2-75.2); PLT 177 X1000 (130-400); RBC 3.74 XMIL (4.2-5.4)
[2016-11-29 08:33] LABS: POTASSIUM 3.7 mmol/L (3.5-5.1)
[2016-11-29] MEDS ORDERED: PRINIVIL PO ONE (09:00)
[2016-11-29] MEDS ORDERED: HYDROCHLOROTHIAZIDE PO ONE (09:00)
[2016-11-29] MEDS: LEVAQUIN PO SCH (09:28)
[2016-11-29] MEDS: FOLIC ACID PO SCH (09:28)
[2016-11-29] MEDS: CENTRUM TABLET PO SCH (09:28)
[2016-11-29] MEDS: ASPIRIN PO SCH (09:28)
[2016-11-29] MEDS: PRILOSEC PO SCH ×2 (09:28→21:30)
[2016-11-29] MEDS: NORVASC PO SCH ×2 (09:28→21:30)
--- NOTE | 2016-11-29 10:06 | PROGRESS NOTE ---
DATE: 11/29/2016 SUBJECTIVE: She feels well. No more diarrhea. No more abdominal pain. No nausea or vomiting. She is tolerating clear liquids fine. OBJECTIVE: Vital Signs: No fevers. Pulse has been in the 50s, blood pressure is 201/51, oxygen saturation 93% on room air. General: She is alert, in no acute distress. Abdomen: Soft, nontender, nondistended with no peritoneal signs. Integument: Warm and dry. Extremities: There is no lower extremity edema. LABORATORY DATA: White count is 5, hematocrit is 30. Creatinine is down to 2.1. ASSESSMENT AND PLAN: This is a 82-year-old female with abdominal pain and diarrhea. I see no signs of mesenteric ischemia. She does have some calcifications in her visceral vessels, but nothing to suggest that there is any flow-limiting lesion here, and her history and exam are not consistent with any type of acute or chronic mesenteric ischemia. She is obese, and has been eating well with only episodic abdominal pain associated with diarrhea. I suspect some gastroenteritis as the etiology. I do think she is due for colonoscopy, and this will be the next step, in addition to stool studies, but we have been unable to get a stool specimen since she has been here as she is no longer having diarrhea. No plans for surgical intervention. I think someone from Gastroenterology is going to see her and talk to her about colonoscopy, and I think this will be the next step. Otherwise, please call with questions or concerns. cc: Alejandra Cabello MD
[2016-11-29] MEDS ORDERED: APRESOLINE IV ONE (12:53)
--- NOTE | 2016-11-29 16:37 | PROGRESS NOTE ---
DATE: 11/29/2016 SUBJECTIVE: The patient reports feeling fine. No diarrhea, no nausea, and no abdominal pain. OBJECTIVE: Vital Signs: Temperature 98.8 degrees, heart rate 72, respiratory rate 20. Blood pressure 201/51 and 6 hours before 182/56 and after lunch 192/72. Her O2 saturation is 97% on room air. General: This is a 56-year-old female, lying in bed, in no acute distress. HEENT: Head is normocephalic and atraumatic. Anicteric sclerae and pale conjunctivae. Mucous membranes moist. Neck: Supple. No JVD noted. No carotid bruits. No lymphadenopathy. No thyromegaly. Cardiovascular: S1 and S2 heard. No murmurs, gallops, or rubs. Regular rate and rhythm. Respiratory: Clear bilaterally to auscultation. No work of breathing or using accessory muscles. Abdomen: Soft, nontender to palpation. Bowel sounds present. No organomegaly. Extremities: No clubbing, cyanosis, or edema. Peripheral pulses present in both legs. Neurological: The patient is alert and oriented x3. Moves 4 extremities. Cranial nerves 2 through 12 are grossly normal. LABORATORY DATA: Reviewed. ASSESSMENT AND PLAN: 1. Abdominal pain with severe diarrhea. This condition has resolved completely. The patient does not have any episodes of diarrhea anymore. At this point, we are going to continue with intravenous fluids. 2. Acute on chronic kidney disease. Creatinine continues to improve. 3. Hyperlipidemia. We will continue with statins. 4. Hypertension. Because this patient was on nothing by mouth for a couple of days, unfortunately blood pressure has gone through the roof today with systolic blood pressure around 200 most of the time. Even though we have started blood pressure medication today, blood pressure is still high, so I prefer to keep her 1 more day here and see. If the blood pressure is definitely better tomorrow, we will let her go. 5. Diabetes mellitus type 2. We will continue with Accu-Chek after meals and also at bedtime. 6. Iron deficiency anemia, aware. cc: Owen Gil MD
[2016-11-29] MEDS ORDERED: HYDROCHLOROTHIAZIDE PO SCH (21:00)
[2016-11-29] MEDS ORDERED: GOLYTELY PO ONE (21:00)
[2016-11-29] MEDS ORDERED: PRINIVIL PO SCH ×2 (21:00)
[2016-11-29] MEDS: CATAPRES PO SCH (21:30)
[2016-11-29] MEDS: PRAVACHOL PO SCH (21:30)
--- NOTE | 2016-11-29 22:34 | PROGRESS NOTE ---
DATE: 11/29/2016 SUBJECTIVE: The patient is a very pleasant 56-year-old female who was evaluated by me in 2012 for chronic constipation and a history of colon polyps. She is now admitted with diarrhea, abdominal pain and decreased oral intake. She was also noted to have iron deficiency anemia. She has a history of gastroesophageal reflux disease. Upon entering the room, the patient states that she is concerned about the persistent diarrhea that is not improve. She is asking for an EGD and colonoscopy. After review of her records, I will place the patient on the schedule for an afternoon EGD and colonoscopy tomorrow. She does have diabetes and therefore it will be important that she has a clear liquid diet. She will need to be NPO 6 hours prior to her procedure. I will place her on the schedule, but the exact time of her procedure will be determined tomorrow after discussing the OR schedule with the nursing staff. cc: MD Owen Yanes MD R. Tyler Harney, MD
[2016-11-30] MEDS: HUMULIN R SUBQ SCH ×5 (03:15→22:11)
[2016-11-30] MEDS: NS 1,000 ML IV SCH ×3 (03:15→21:19)
[2016-11-30] MEDS: LANTUS SUBQ SCH ×2 (03:16→22:12)
[2016-11-30] MEDS: FLAGYL PO SCH ×3 (05:29→21:18)
[2016-11-30] MEDS: NORVASC PO SCH ×2 (08:07→21:18)
[2016-11-30] MEDS: LEVAQUIN PO SCH (08:07)
[2016-11-30] MEDS: FOLIC ACID PO SCH (08:07)
[2016-11-30] MEDS: PRILOSEC PO SCH ×2 (08:07→21:18)
[2016-11-30] MEDS: CENTRUM TABLET PO SCH (08:07)
--- NOTE | 2016-11-30 14:40 | PROGRESS NOTE ---
DATE: 11/30/2016 SUBJECTIVE: Patient reports feeling fine. No diarrhea reported, just right after she started taking GoLYTELY. No abdominal pain no. Nausea or vomiting. OBJECTIVE: Vital Signs: Temperature 97.7 degrees, heart rate 73, respiratory rate 12, blood pressure 186/66, O2 saturation 99% on room air. General Examination: This is a 56-year-old, female, lying in bed, in no acute distress. HEENT: Head is normocephalic, atraumatic. Anicteric sclerae and pale conjunctivae. Mucous membranes moist. Neck: Supple. No JVD noted. No carotid bruits. No lymphadenopathy. No thyromegaly. Cardiovascular: S1, S2 heard. No murmurs, gallops, or rubs. Regular rate and rhythm. Respiratory: Clear bilaterally to auscultation. No work of breathing or using accessory muscles. Abdomen: Soft, nontender to palpation. Bowel sounds present. No organomegaly. Extremities: No clubbing, cyanosis, or edema. Peripheral pulses present in both legs. Neurological: Patient is alert and oriented x3. Moves 4 extremities. Cranial nerves 2-12 grossly normal. LABORATORY DATA: Reviewed. ASSESSMENT/PLAN: 1. Abdominal pain with severe diarrhea. That condition is completely resolved. 2. Acute on chronic kidney disease. Creatinine continues to improve. 3. Hyperlipidemia. We will continue with the statin. 4. Hypertension. Blood pressure is still high so we have increased the lisinopril from 1 daily to twice daily, and also amlodipine she is receiving 5 mg b.i.d. 5. Diabetes mellitus type 2. We will continue with Accu-Cheks after meals and also at bedtime. 6. Iron deficiency anemia. Aware. 7. Patient has being evaluated by Dr. Dunham and is going to have EGD today. If that exam is normal the patient will be discharged. cc: Owen Gil MD
[2016-11-30] MEDS ORDERED: DIPRIVAN 1% ONE (14:55)
[2016-11-30] MEDS ORDERED: FENTANYL ONE (14:57)
[2016-11-30] MEDS ORDERED: XYLOCAINE-MPF 2% ONE (16:04)
[2016-11-30] MEDS ORDERED: MYLICON DROPS ONE (16:12)
[2016-11-30] MEDS: PRINIVIL PO SCH ×3 (16:18→22:13)
[2016-11-30] MEDS: ASPIRIN PO SCH (16:19)
[2016-11-30] MEDS ORDERED: PRINIVIL PO SCH (21:00)
[2016-11-30] MEDS ORDERED: HYDROCHLOROTHIAZIDE PO SCH (21:00)
[2016-11-30] MEDS: CATAPRES PO SCH (21:18)
[2016-11-30] MEDS: PRAVACHOL PO SCH (21:19)
[2016-11-30] MEDS: ANUSOL-HC SUPP PR SCH (21:19)
[2016-12-01] MEDS: NS 1,000 ML IV SCH (01:24)
[2016-12-01 03:27] VITALS: BP 180/55
[2016-12-01] MEDS: FLAGYL PO SCH (04:43)
[2016-12-01] MEDS: PRINIVIL PO SCH ×2 (04:43→07:55)
[2016-12-01] MEDS: HUMULIN R SUBQ SCH (06:20)
[2016-12-01] MEDS: CENTRUM TABLET PO SCH (07:54)
[2016-12-01] MEDS: NORVASC PO SCH (07:54)
[2016-12-01] MEDS: LEVAQUIN PO SCH (07:54)
[2016-12-01] MEDS: ASPIRIN PO SCH (07:54)
[2016-12-01] MEDS: FOLIC ACID PO SCH (07:55)
[2016-12-01] MEDS: PRILOSEC PO SCH (07:55)
[2016-12-01] MEDS: ANUSOL-HC SUPP PR SCH (08:00)
--- NOTE | 2016-12-01 18:43 | DISCHARGE SUMMARY ---
ADMISSION DATE: 11/27/2016 DISCHARGE DATE: 12/01/2016 CONSULTATIONS: 1. Melvin Hernadez MD with Gastroenterology. 2. Markie Cabello MD with General Surgery. PERTINENT PROCEDURES: 1. Renal CT is negative for renal stones, trace ascites, superior mesenteric artery vascular disease, possible mesenteric ischemia. 2. Renal ultrasound showed elevated resistive indices of the segmental renal arteries bilaterally compatible with chronic medical renal disease. DISCHARGE DIAGNOSES: 1. Abdominal pain with severe diarrhea. Patient had a renal CT that showed some superior mesenteric artery vascular disease to correlate with possible mesenteric ischemia. She did undergo an renal aortic ultrasound that showed elevated resistive indices of the segmental renal arteries bilateral compatible with medical renal disease. She was also evaluated by Dr. Markie Cabello from General Surgery. He saw no signs on examination or clinical findings on imaging or labs to suggest any acute or chronic mesenteric ischemia. Occult stool was negative. Clostridium difficile was negative. WBC stool was She underwent EGD with Dr. Dunham that showed mild esophagitis and mild gastritis. She was treated for a colitis type setting with Levaquin and Flagyl given the persistence of her diarrhea, now resolved. 2. Acute kidney injury with chronic kidney disease stage 3. The patient was given IV hydration secondary to being hydrated from diarrhea. 3. Hyperlipidemia. Continue with statin. 4. Hypertension. Continue with home medications. 5. Diabetes mellitus type 2. We will continue with her home Lantus. We have discontinued her Janumet. She will need to follow up with her PCP regarding her kidney disease. 6. Iron deficiency anemia. Continue with MVI and folic acid. 7. Gastroesophageal reflux disease. Continue PPI. HOSPITAL COURSE: Ms. Slade is a 56-year-old, female who carries a history of chronic kidney disease stage 3, hypertension, iron deficiency anemia, hyperlipidemia, GERD, constipation, migraine headaches, diabetes mellitus type 2, TIA 3 years ago. She states normally she has constipation with 1 bowel movement about every 3 days. On Sunday night she started having abdominal pain that was generalized but increased in the right lower quadrant during diarrhea. She states that she had 11 bouts of diarrhea that was dark green in color, no blood. Workup with a noncontrast and renal CT was negative for renal stones. She had trace ascites with superior mesenteric artery vascular disease, need to correlate for possible mesenteric ischemia. It also showed mild acute kidney injury on top of her chronic kidney disease secondary to dehydration. She was given IV hydration and admitted to the medical floor. Started on p.o. antibiotics. Stool cultures were sent. General Surgery evaluated her for possible mesenteric ischemia. They evaluated her labs as well as diagnostic data. They saw no evidence of any ischemia. They felt she needed further GI workup. Given her kind constipation history, GI followed the patient. They also felt she needed to be treated for her constipation. The patient did undergo an EGD and colonoscopy with Dr. Dunham. Dr. Mayorga did speak with Dr. Dunham and it showed mild gastritis and mild esophagitis. We did not have the final report but her diarrhea and abdominal pain have completely resolved. Her acute on chronic kidney injury continues to improve. She was started back on her home blood pressure medications. She will follow up with Dr. Dunham as indicated. She is being discharged home today on 5 more days of antibiotics. VITAL SIGNS ON DISCHARGE: Temperature is 98.1 degrees, heart rate 64, respirations 19, blood pressure is 117/78, O2 is 100% on room air. DISCHARGE DIET: Diabetic. DISCHARGE MEDICATIONS: 1. Norvasc 5 mg p.o. daily. 2. Aspirin 81 mg p.o. daily. 3. Catapres 0.1 mg p.o. at bedtime. 4. Folic acid 1 mg p.o. daily. 5. Hydrochlorothiazide 12.5 mg p.o. at bedtime. 6. Anusol HC suppositories 12.5 mg p.o. b.i.d. to stop on 12/07/2016. 7. Lantus 25 units subcutaneous at bedtime. 8. Levaquin 250 mg p.o. daily for 5 days. 9. Lisinopril 20 mg p.o. at bedtime. 10. Flagyl 20 mg p.o. q.8 hours. 11. Multivitamin 1 each p.o. daily. 12. Prilosec 40 mg p.o. daily. 13. Pravachol 40 mg p.o. at bedtime. FOLLOW-UP: Ms. Slade is being discharged home. She will follow up with Dr. Dunham in 4 weeks. She will need to follow up with a primary care physician, and a list has been provided to her, in the next 1-2 weeks. She will return to the ED for any worsening of symptoms. Dictated by HERMELINDO Reyes for Owen Gil MD cc: Owen Gil MD
--- NOTE | 2016-12-01 23:22 | OPERATIVE NOTE ---
PROCEDURE DATE: 11/30/2016 REFERRING PHYSICIAN: Owen Mayorga M.D. INDICATION FOR PROCEDURE: 1. Loss of appetite. 2. Refractory reflux disease. 3. Diarrhea. 4. Abdominal pain. 5. Iron deficiency anemia. 6. Diabetes mellitus 2. PROCEDURE PERFORMED: Esophagogastroduodenoscopy with biopsy. CONSENT: Informed consent was obtained from the patient prior to the procedure. The risks, benefits, and alternatives were discussed. MEDICATION: The patient received monitored anesthesia care. PERFORMING PHYSICIAN: Tameka Dunham M.D. ASSISTANTS: 1. ST. Thuy 2. Trini Welch RN. 3. Linden Ramos CRNA. 4. Demarco Whitaker M.D. (anesthesia). COMPLICATIONS: There were no complications. ESTIMATED BLOOD LOSS: 1 mL. SPECIMENS REMOVED: 1. Duodenal biopsy. 2. Gastric biopsy. 3. Gastric polyp biopsy. FINDINGS: After sedation was achieved, the upper endoscope was inserted to the 2nd portion of the duodenum. The hypopharynx appeared normal. The tubular esophagus appeared normal. The GE junction was irregular but there was no evidence of Melendez esophagus or esophageal varices. The GE junction was measured at 40 cm from the incisors. There is a hiatal hernia that spanned from 40-43 cm. In the gastric lumen, there was mild erosive gastritis in the antrum , fundus and body. There were 3 small fundic gland polyps. The largest polyp was biopsied. The polyps remained intact. On forward view, the pylorus appeared normal. There was significant duodenitis with bowel wall edema on the 1st and 2nd portion of the duodenum. Multiple biopsies were taken. The lumen was then decompressed and the scope was removed without incident. IMPRESSION: 1. Hiatal hernia. 2. Gastritis. 3. Fundic gland polyps. 4. Duodenitis. 5. Duodenal bowel wall edema. RECOMMENDATION: 1. Await biopsy results. 2. Continue omeprazole 40 mg b.i.d. for 6 weeks and then reduce to once daily. 3. Will proceed with colonoscopy as previously scheduled. 4. Will have the patient return to clinic in 3-4 weeks to assess interval progress. cc: MD LOGAN Mcelroy
--- NOTE | 2016-12-01 23:41 | OPERATIVE NOTE ---
PROCEDURE DATE: 11/30/2016 REFERRING PHYSICIAN: Owen Mayorga M.D. INDICATION FOR PROCEDURE: 1. Abdominal pain. 2. Diarrhea. 3. Iron deficiency anemia. 4. History of colon polyps. PROCEDURE PERFORMED: Colonoscopy with biopsy. CONSENT: Informed consent was obtained from the patient prior to the procedure. The risks, benefits, and alternatives were discussed. MEDICATION: The patient received monitored anesthesia care. PERFORMING PHYSICIAN: Tameka Dunham M.D. ASSISTANTS: 1. ST. Th[facility] 2. Trini Welch RN. 3. Linden Ramos CRNA. 4. Demarco Whitaker M.D. (anesthesia). COMPLICATIONS: There were no complications. ESTIMATED BLOOD LOSS: Less than 1 mL. SPECIMENS REMOVED: 1. In jar #6, there were random colon biopsies. 2. In jar #5, there were rectal biopsies. CECAL INTUBATION TIME: 4 minutes. WITHDRAWAL TIME: 15 minutes. PREP QUALITY: Poor. FINDINGS: After the EGD was performed, the pediatric colonoscope was inserted to the terminal ileum. The terminal ileum, ileocecal valve and appendiceal orifice appeared endoscopically normal. Upon withdrawal the colonic mucosa appeared normal. In the rectum, there were multiple scattered aphthous ulcers that appeared consistent with proctitis. There were grade 1 internal hemorrhoids. On retroflexed view, there were large inflamed external hemorrhoids with no stigmata of bleeding. After the exam was complete, the lumen was decompressed and the scope was removed without incident. IMPRESSION: 1. Proctitis. 2. Internal hemorrhoids. 3. External hemorrhoids. RECOMMENDATION: 1. Await biopsy results. 2. The patient is currently receiving Levaquin and Flagyl for enterocolitis. I would continue the antibiotics to complete a 10 day course. 3. Begin Anusol HC suppositories 1 per rectum b.i.d. for 7 days and then stop. 4. She will need a repeat colonoscopy in 5 years. It may be repeated sooner based on her clinical symptoms. 5. Will have the patient return to clinic in 3-4 weeks to assess interval progress. cc: Owen Gil MD [facility]
== END 2016-12-01 10:19 | disposition home or self-care (01) ==
LOC: ED 08:12 → EDIPHOLD 10:35 → SUATTDRO 13:09 → 4N 13:09
PROVIDERS: ATTEND Internal Medicine

== ENCOUNTER 2018-06-20 00:37 | Inpatient (IN) ==
[2018-06-20 02:36] LABS: BASO# 0.01 X1000 (0.0-0.2); BASO% 0.1 % (0.0-0.8); EOS# 0.08 X1000 (0.0-0.7); HEMATOCRIT 31.7 % (37.0-47.0); HEMOGLOBIN 9.8 g/dL (12.0-16.0); LYMPH# 1.79 X1000 (1.2-3.4); LYMPH% 23.4 % (20.5-51.1); MCH 25.1 PG (27-31); MCHC 30.9 g/dL (33-37); MCV 81.1 FL (81-99); MONO# 0.57 X1000 (0.11-0.59); MONO% 7.5 % (1.7-9.3); MPV 12.2 FL (7.4-10.4); PLT 196 X1000 (130-400); RBC 3.91 XMIL (4.2-5.4); WBC 7.65 X1000 (4.8-10.8)
[2018-06-20 02:44] LABS: URINE SOURCE CLEAN CATCH
[2018-06-20 02:57] LABS: AGAP 8; ALBUMIN 3.3 g/dL (3.5-5.0); ALKALINE PHOSPHATASE 114 U/L (32-104); BUN 38 mg/dL (8-22); CALCIUM 9.2 mg/dL (8.8-10.2); CHLORIDE 111 mmol/L (98-107); COSMO 300; ESTIMATED GFR 11; GLUCOSE 167 mg/dL (70-104); GOT 13 U/L (10-30); GPT 9 U/L (10-36); LIPASE 16 U/L (13-60); SODIUM 144 mmol/L (136-145); TCO2 25 mmol/L (25-35); TOTAL BILIRUBIN < 0.15 mg/dL (0.20-1.00); TOTAL PROTEIN 6.7 g/dL (6.3-8.3)
[2018-06-20 03:40] LABS: BILIRUBIN URINE NEGATIVE (NEGATIVE); BLOOD URINE SMALL (NEGATIVE); COLOR STRAW; GLUCOSE URINE 150 mg/dL (NEGATIVE); KETONE URINE NEGATIVE (NEGATIVE); LEUKOCYTES URINE NEGATIVE (NEGATIVE); NITRITE URINE NEGATIVE (NEGATIVE); PROTEIN URINE 300 mg/dL (NEGATIVE); SP GRAVITY URINE 1.001; TURBIDITY URINE CLEAR (CLEAR); UR EPITHELIAL CELLS <10 /HPF (<10); URINE BACTERIA NEGATIVE /HPF; URINE RBC <10 /HPF (<10); URINE WBC <10 /HPF (<10); UROBILINOGEN URINE NORMAL (NORMAL)
[2018-06-20] MEDS ORDERED: NS 1,000 ML IV ONE (03:54)
--- NOTE | 2018-06-20 05:27 | PROVIDER DOCUMENTATION ---
This chart was entered by Jonny Browne Scribe, acting as scribe for Mitchell Acosta MD. HPI-Abdominal Pain/GI Problem - General Chief Complaint: Epigastric Pain Stated Complaint: ABD PAIN Time Seen by Provider: 06/20/18 00:54 Source: patient Allergies/Adverse Reactions: Patient Allergies Allergy/AdvReac Type Severity Reaction Status Date / Time metformin AdvReac DIARRHEA Verified 09/06/17 07:56 pantoprazole sodium * AdvReac DIARRHEA Verified 09/06/17 07:56 [From Protonix] Home Medications: Home Medication List Medication Instructions Recorded Confirmed Last Taken Type Aspirin 81 mg PO DAILY 07/19/16 09/06/17 09/05/17 07:00 History Insulin Glargine [Lantus] 25 unit SUBQ QHS 30 Days 03/21/17 09/06/17 09/04/17 21 :00 Rx insuln.pen Multivitamin/Iron/Folic Acid 1 ea PO DAILY 30 Days tab 03/21/17 09/06/17 07:00 Rx [Multi Complete-Iron Tablet] Omeprazole [Prilosec] 40 mg PO DAILY@0700 capsule 03/21/17 09/06/17 09/05/17 07 :00 Rx ATORVAstatin [Lipitor] 40 mg PO QHS #30 tab 09/08/17 Unknown Rx Amlodipine Besylate [Norvasc] 2.5 mg PO DAILY #30 tab 09/08/17 Unknown Rx Clonidine [Catapres] 0.1 mg PO BID #60 tab 09/08/17 Unknown Rx Levofloxacin [Levaquin] 500 mg PO Q48H #3 tab 09/08/17 Unknown Rx Metronidazole [Flagyl] 500 mg PO TID #21 tab 09/08/17 Unknown Rx Polyethylene Glycol 3350 [Miralax] 17 gm PO DAILY #30 powd.pack 09/08/17 Unknown Rx Acetaminophen/Diphenhydramine 1 ea PO Q4-6H PRN PRN #20 tab 01/06/18 Unknown Rx [Percogesic 325-12.5 mg Tablet] - History of Present Illness-ABD Nature of Presenting Problems: Pt is a 59 y/o F presents to the ED with abdominal pain for 1 month. She reports the pain to begin with was with bending only. 2 days ago the pain has been constant with periods of sharp pain. She reports diarrhea and vomiting yesterday only. Abdominal Pain Onset Location: reports: RUQ Pain Radiation: reports: no radiation Quality of Pain: reports: aching, sharp Severity in ED: reports: moderate, severe Onset/Duration: reports: other (1 month) Timing: reports: getting worse (the last 2 days) Exposure to sick contacts?: No Modifying Factors: improves with: nothing Associated Symptoms: reports: diarrhea, vomiting. denies: fever/chills, shortness of breath Review of Systems - Adult - REVIEW OF SYSTEMS - ADULT Constitutional: denies: chills, fever Eyes: reports: no symptoms reported Ears, Nose, Mouth & Throat: reports: no symptoms reported Cardiovascular: reports: no symptoms reported Respiratory: denies: cough, shortness of breath, wheezing Gastrointestinal: reports: abdominal pain, diarrhea, nausea, vomiting. denies: constipation Genitourinary: reports: no symptoms reported Musculoskeletal: reports: no symptoms reported Integumentary: reports: no symptoms reported Neurological: denies: dizziness/vertigo, headache/migraines Psychiatric: reports: no symptoms reported Endocrine: reports: no symptoms reported Hematologic/Lymphatic: reports: no symptoms reported Allergic/Immunologic: reports: no symptoms reported All Other Systems: Reviewed and Negative Past History - Adult - PAST MEDICAL HISTORY-ADULT Review of Records: reports: Old Records Reviewed, Nursing Assessment Review, Medications Reviewed Major Childhood Illnesses: reports: denies history Cardiovascular: reports: HTN, hyperlipidemia Respiratory: reports: denies history Gastrointestinal: reports: GERD, other (constipation) Obstetrical/Gynecological: reports: denies history Genitourinary: reports: denies history Musculoskeletal: reports: denies history Neurological: reports: headaches/migraines Endocrine/Immune: reports: Diabetes Other Conditions: reports: denies history - PRIOR SURGERIES/PROCEDURES Surgical/Procedure History: reports: hysterectomy - IMMUNIZATION STATUS Childhood Immunizations: UTD Flu Vaccine: UTD - FAMILY HISTORY Family History: reviewed, not pertinent - SOCIAL HISTORY Smoking: non-smoker Living Situation: family Physical Exam-General - PHYSICAL EXAM-ADULT Initial Vital Signs Reviewed: Yes - CONSTITUTIONAL General Appearance: appears well, alert, no apparent distress - EYES Eyes: PERRL/EOMI, pink conjunctivae - HEAD, EARS, NOSE, MOUTH & THROAT HENMT: moist mucous membranes, normal ENT inspection, pharynx normal - NECK Neck: non-tender, full range of motion, supple, normal inspection - RESPIRATORY Respiratory: lungs clear, normal breath sounds, no pleuratic chest pain, no respiratory distress, no accessory muscle use - CARDIOVASCULAR Cardiovascular: normal peripheral pulses, regular rate, rhythm - GASTROINTESTINAL (ABDOMEN) Abdominal Exam: non tender, soft. negative: distended, guarding, rigid - MUSCULOSKELETAL Back Exam: normal inspection, no CVA tenderness, no vertebral tenderness Extremity: normal range of motion, non-tender, normal gait, normal inspection - SKIN Integumentary: normal color, normal turgor, warm/dry - PSYCHIATRIC Psych/Mental Status: normal mood/affect, normal thought content, normal thought process, oriented x 3 Progress - PLAN OF CARE/RESULTS Progress/Plan/Lab Results: Vital Signs - 8 hr 06/20/18 00:48 Temperature 99.2 F Pulse Rate 83 Respiratory Rate 18 Blood Pressure 236/81 O2 Sat by Pulse Oximetry 96 Orders Category Date Time Status CT ABD/PELVIS W/IV CONT ONLY [CT] Stat Exams 06/20/18 01:09 Ordered CBC WITH ELECTRONIC DIFF [HEME] Stat Lab 06/20/18 01:09 Uncollected COMPREHENSIVE METABOLIC PANEL [CHEM] Stat Lab 06/20/18 01:09 Uncollected LACTATE, PLASMA [CHEM] Stat Lab 06/20/18 01:09 Uncollected LIPASE [CHEM] Stat Lab 06/20/18 01:09 Uncollected UA [URINALYSIS] [URINALYSIS] Stat Lab 06/20/18 01:10 Uncollected Result Diagrams: 06/20/18 02:15 06/20/18 02:15 - EKG 1 Time of EKG reading by physician:: 01:42 EKG Read and Signed by:: Mitchell Acosta EKG Interpretation (*Must complete 3 of following elements*): Abnormal Rate: 75 Rhythm: NSR ST Wave: non-specific ST changes Comments: prolonged QT Departure - Departure Date of Disposition Decision: 06/20/18 Time of Disposition Decision: 05:26 DIAGNOSIS: Acute on chronic renal failure Qualifiers: Acute renal failure type: unspecified Chronic kidney disease stage: unspecified stage Qualified Code(s): N17.9 - Acute kidney failure, unspecified; N18.9 - Chronic kidney disease, unspecified Disposition: ADMITTED INPATIENT 09 Certified Medical Emergency: Emergent Condition: Stable Referrals and Follow-Ups: Filippo Sousa MD [Primary Care Provider] - - Critical Care Note This patient required my direct & personal management of CC.: No Attestation - Physician/ SHANT Attestation Patient care was provided by Advanced Practice Provider:: No The physician spent face to face time with patient:: Yes Advanced Practice Provider documentation review:: Supervising physician onsite and consulted in the evaluation and care of this patient. The physician did have a face to face encounter with the patient. This chart was documented by the indicated scribe, (Jonny Browne Scribe) and accurately reflects the services I performed and decisions made by me, Mitchell Acosta MD, as attested by the provider's signature.
[2018-06-20] MEDS ORDERED: DILAUDID IV PRN (05:35)
[2018-06-20] MEDS ORDERED: LABETALOL IV PRN (05:36)
[2018-06-20] MEDS: APRESOLINE IV PRN ×2 (05:45→11:05)
[2018-06-20] MEDS: HEPARIN SUBQ SCH ×3 (05:45→21:51)
--- NOTE | 2018-06-20 06:18 | Diag Imaging Result Doc PS360 ---
US GB < RUQ (LIMITED) - 06/20/2018 INDICATION: ABD PAIN TECHNIQUE: COMPARISON: CT from earlier 06/20/2018 FINDINGS: The pancreas is obscured. The gallbladder is collapsed but otherwise normal. The liver and right kidney are normal. Common bile duct measures 2.8 mm. Aorta, IVC, and main portal vein are patent. IMPRESSION: Negative exam. Electronically signed by Virgilio Leos 06/20/2018 6:16 AM
--- NOTE | 2018-06-20 06:35 | HISTORY AND PHYSICAL ---
CHIEF COMPLAINT: Abdominal pain. HISTORY OF PRESENT ILLNESS: This is 58-year-old female with a past medical history of chronic kidney disease stage III, hypertension, hyperlipidemia, GERD, diabetes mellitus type 2, migraines, and a TIA 3 years ago. She comes in today complaining of right upper quadrant pain for the last month, states that it is worse whenever she bends over. This Sunday, it started hurting and it would not stop. She also developed nausea and vomiting on Sunday. She has had some loose stools. It appears that she was admitted for something very similar to this last August. However, at that time, the abdominal pain was not localized in the right upper quadrant. CT was obtained in the emergency room that showed a calcification near the pancreatic head. It recommended ultrasound followup. The ultrasound showed a normal gallbladder but then could not visualize the pancreas related to bowel gas. She will be admitted for further evaluation and treatment. PAST MEDICAL HISTORY: See HPI. PAST SURGICAL HISTORY: Hysterectomy, otherwise none to note. FAMILY HISTORY: Notable for heart disease in first degree relatives a well as diabetes mellitus. No history of bowel problems or Crohn's disease or inflammatory bowel disease. She did make a note that her mother had a cholecystectomy. SOCIAL HISTORY: No tobacco, alcohol or illicit drugs. ALLERGIES: Metformin and Protonix. HOME MEDICATIONS: A list of home medications has not been reconciled. Order was placed for nursing to reconcile home medications in the computer. These will be restarted when appropriate. REVIEW OF SYSTEMS: A 14-point review of systems conducted with the patient. Pertinent positives listed above in the HPI. All other systems reviewed and found to be negative. PHYSICAL EXAMINATION: VITAL SIGNS: Temperature 99.2, pulse 83, respirations 17, blood pressure 227/77, oxygen saturation 96% on room air. GENERAL: A pleasant 58-year-old female lying on the ER stretcher. She is in no acute distress. Answers all questions appropriately. Alert and oriented x3. HEENT: Head is atraumatic, normocephalic. Pupils equal, round and reactive to light. Extraocular eye movement is intact. Sclerae anicteric. Conjunctivae is pink. Oral mucosa is dry. NECK: Short and thick. No JVD. No thyromegaly. Trachea is midline. No cervical lymphadenopathy. LUNGS: Clear to auscultation bilaterally. No rhonchi, wheezes, or rales. Symmetric rise and fall of respirations. CARDIAC: S1 and S2 appreciated. No murmurs, gallops, rubs. Regular rhythm. ABDOMEN: Protuberant. Soft, nondistended. Right upper quadrant pain. No guarding. No rebound tenderness. Bowel sounds normoactive in all four quadrants. No pulsatile masses. No organomegaly. EXTREMITIES: No clubbing or cyanosis. 1+ pitting edema bilateral lower extremities. 1+ pedal pulses bilaterally. NEUROLOGIC: Alert and oriented x3. Cranial nerves II-XII appear to be grossly intact. SKIN: Warm, dry, intact. No acute lesions or rash. GENITOURINARY: No bladder distention. Otherwise deferred. DIAGNOSTIC DATA: CT of the abdomen and pelvis showed a calcification near the pancreatic head. Recommended a followup ultrasound. Right upper quadrant ultrasound showed no stone, essentially normal gallbladder but could not visualize the pancreas related to bowel gas. LABORATORY DATA: Hemoglobin 9.8, hematocrit 31.7. Sodium 144, potassium 4, chloride 111, carbon dioxide 25, BUN 38, creatinine 5, glucose 167. Urine 150 glucose, small amount of blood, 300 protein, otherwise unremarkable. ASSESSMENT AND PLAN: 1. Right upper quadrant pain, questionable need for ERCP. The CT showed a calcification near the pancreatic head, however, the ultrasound was normal. Will consult Gastroenterology. Dilaudid as needed for pain. Zofran as needed for nausea. 2. Acute kidney injury on chronic kidney disease stage III. Normal saline bolus was given in the emergency room. Will continue normal saline at 75 mL an hour. Will consult Dr. Colon. 3. Hypertension. I am unsure what antihypertensives the patient is on at home. At this point, will give hydralazine 10 mg IV q.4 hours p.r.n. and labetalol 20 mg IV q.4 hours p.r.n. as needed for systolic blood pressure greater than 160. She states that she is chronically hypertensive and has been very hypertensive on several admissions. Some of this could be related to pain. 4. Anemia of chronic inflammation. 5. Hyperlipidemia. 6. Diabetes type 2 with neuropathy. Will order fingerstick blood sugars before meals and at bedtime with low dose sliding scale insulin. Will continue the patient's home medications once they are reconciled. The patient was unsure what she takes. She will be monitored on CICU related to her hypertension. Further recommendations per the patient's clinical course. Dictated by HERMELINDO Vargas for Mario Carpenter MD cc: HERMELINDO Vargas MD Gregory S. Cheatham, MD
[2018-06-20] MEDS: HUMALOG SUBQ SCH ×4 (06:51→21:39)
[2018-06-20 07:03] LABS: HEMOGLOBIN A1C 6.6 % (4.8-6.0)
--- NOTE | 2018-06-20 07:37 | Diag Imaging Result Doc PS360 ---
EXAM: CT ABDOMEN/PELVIS W/O CONTRAST 06/20/2018 HISTORY: RUQ pain, n/v TECHNIQUE: This exam was performed using automated exposure control, adjustment of mA or kV according to patient size, and/or use of iterative reconstruction technique. COMMENT: The current examination is compared with the previous study of 09/05/2017. There are some prominent interstitial opacities in both lung bases which appear to have been present at the time the previous study. There is a pericardial effusion which is slightly smaller than on the previous study. This measures less than 6 mm anteriorly compared to almost 7 mm previously. The bilateral subphrenic fluid collections are no longer present. There is no evidence of nephrolithiasis or ureterolithiasis and no evidence of hydronephrosis is present. There is a somewhat irregularly marginated lucent lesion arising anteriorly from the left upper renal pole which has not changed significantly since the previous examination and which has a central CT density of -3 Hounsfield units. This is probably a somewhat complex cyst. There are punctate calcifications in the head of the pancreas which were present previously. There are atherosclerotic calcifications in the aorta and its branches including the superior mesenteric artery. There is no evidence of small bowel dilatation. There is some stool throughout the colon without evidence of dilatation. There is retained solid contents in the stomach. The gallbladder is not distended and there are no definite stones. The urinary bladder is unremarkable. There has been hysterectomy. There are no apparent masses or significant adenopathy. The appendix is normal in appearance. There is vacuum joint phenomenon in the sacroiliac joints. There is no evidence of acute disease in the regional skeleton. IMPRESSION: Improved ascites and pericardial effusion. Mild constipation. Otherwise stable since 09/05/2017. Electronically signed by Riki Sewell 06/20/2018 7:35 AM
[2018-06-20] MEDS: ZOFRAN IV PRN ×2 (07:46→10:42)
--- NOTE | 2018-06-20 08:17 | EKG Report ---
Test Performed on : 06/20/2018 01:42:24 AM Test Reason : ED. NO EKG ORDER FOR MUSE Blood Pressure : / mmHG Vent. Rate : 075 BPM Atrial Rate : 075 BPM P-R Int : 132 ms QRS Dur : 084 ms QT Int : 420 ms P-R-T Axes : 029 -11 091 degrees QTc Int : 469 ms Normal sinus rhythm. Nonspecific T wave abnormality Prolonged QT Abnormal ECG When compared with ECG of 06-JAN-2018 09:56, No significant change was found Unconfirmed Result
[2018-06-20] MEDS: NS 1,000 ML IV SCH ×2 (09:15→21:52)
[2018-06-20 11:20] LABS: UR CREAT RANDOM 35.6 mg/dL (11-20); UR PROT RANDOM 366.6 mg/dL
--- NOTE | 2018-06-20 12:15 | PROGRESS NOTE ---
DATE: 06/20/2018 INTERVAL HISTORY: Ms Slade was admitted for acute nausea/vomiting, abdominal pain, loose stools, hypertensive emergency. SUBJECTIVE: The patient continues to have vomiting and feeling nauseous. Her abdominal pain is also persistent in the right upper quadrant. She is awaiting HIDA scan. OBJECTIVE: Vital Signs: Temperature 98 degrees, pulse 85, respiratory rate 16, blood pressure 180/90, saturating 95% on room air. General: Appears morbidly obese. In mild distress because of vomiting, and is feeling chilly. Lungs: Air entry bilaterally equal. No wheeze, rhonchi. Mild bilateral infrascapular crackles. Cardiovascular: S1, S2 normal. Systolic murmur at right 2nd intercostal space without any rub or gallop, crescendo/decrescendo. Abdomen: Soft. Tender in right upper quadrant region without rebound or rigidity. Negative José's sign. Bowel sounds active. Extremities: Bilateral lower extremity edema. DIAGNOSTIC STUDIES: Labs suggestive of no leukocytosis, normocytic anemia, hyperchloremia, acute kidney injury on chronic kidney disease or it might be progression of CKD . No new microbiological data. Imaging was unremarkable except pancreatic head calcification, left-sided renal cysts, and atherosclerotic disease affecting intra-abdominal blood vessels. I discussed with the patient about following up with repeat imaging outpatient to see progression of renal cyst progression of other abdominal findings. ASSESSMENT: 1. Nausea/vomiting, abdominal pain. Differential diagnosis includes peptic ulcer disease, hypertensive emergency, mesenteric ischemia, acute kidney injury on chronic kidney disease. My suspicion of acute cholecystitis is less, considering CT and ultrasound finding. In any case, a HIDA scan has already been ordered. I will await the results. 2. Insulin-dependent diabetes mellitus. PLAN: I will start the patient on her home antihypertensive medication once her HIDA scan is done. Continue patient on her home medication of aspirin, insulin, multivitamins, and omeprazole. DISPOSITION: Patient remains inside the hospital. All of her questions have been answered. There were several family members at bedside. They were given an opportunity to ask questions, and they were answered satisfactorily. cc: Galen Cota MD
--- NOTE | 2018-06-20 14:27 | Diag Imaging Result Doc PS360 ---
HIDA SCAN W/ EJECTION FRACTION - 06/20/2018 INDICATION: r/o biliary dyskinesia COMPARISON: None FINDINGS: 5.7 millicuries of Choletec was administered. There is normal uptake and clearance by the liver. There is normal excretion into the gallbladder and small bowel. A fatty meal was given. The gallbladder ejection fraction is 79%. IMPRESSION: Negative exam. An abnormally low ejection fraction (less than 35%) can be present in patients without gallbladder dyskinesis or chronic cholelithiasis to have other medical conditions. These include but are not limited to, patients with diabetic mellitus, irritable bowel syndrome, , gastroenteritis. peptic ulcer disease, and patients receiving morphine or nifedipine. Electronically signed by Virgilio Leos 06/20/2018 2:24 PM
[2018-06-20] MEDS ORDERED: CATAPRES PO ONE (14:41)
--- NOTE | 2018-06-20 16:02 | GENERAL SURGERY CONSULTATION ---
DATE: 06/20/2018 REQUESTING PHYSICIAN: Hospitalist. REASON FOR CONSULTATION: Rule out gallbladder disease. HISTORY OF PRESENT ILLNESS: A 58-year-old female with past medical history of chronic kidney disease stage 3, hypertension, hyperlipidemia, gastroesophageal reflux disease, diabetes mellitus, migraines, and TIA, presenting with right upper quadrant pain that has been going on for a month. She says worse whenever she bends over. It started really bad on Sunday and brought her into the emergency department because it would not stop. It has been associated with nausea/vomiting and some loose stools. She has been worked up extensively previously and in this admission and even included a CT scan and an ultrasound which did not show any gallbladder disease. She has a HIDA scan that has just been done, but the official report is pending, but on preliminary review, it looks to be somewhat normal. I was asked to weigh an opinion. Patient is still reporting some epigastric and right upper quadrant pain. PAST MEDICAL HISTORY: 1. Chronic kidney disease. 2. Hypertension. 3. Hyperlipidemia. 4. Gastroesophageal reflux disease. 5. Diabetes mellitus. 6. Migraines. 7. TIA. PAST SURGICAL HISTORY: Includes hysterectomy. FAMILY HISTORY: Positive for heart disease. SOCIAL HISTORY: No tobacco or alcohol, or illicit drugs. ALLERGIES: Metformin and Protonix. HOME MEDICATIONS: Reviewed. REVIEW OF SYSTEMS: A full 10 point review of systems obtained and negative except as specified in HPI. Physical. PHYSICAL EXAMINATION: Vital Signs: Patient is currently afebrile, pulse 85, respiratory rate 16, blood pressure 188/90, O2 saturation 95% on room air. General: No acute distress. Resting comfortably. female who looks stated age. HEENT: Normocephalic, atraumatic. Pupils equal, round, and reactive to light. Mucous membranes moist. Oropharynx benign. Neck: Supple. Trachea midline. Cardiovascular: Regular rate and rhythm. Lungs: Grossly clear. Abdomen: Soft. Some tenderness in right upper quadrant and epigastric area. No peritoneal signs. Extremities: Moves all extremities. Neurologic: Grossly intact. Skin: No signs of jaundice. Vascular: All extremities perfused. DIAGNOSTIC STUDIES: White blood count is normal, hematocrit 31, platelet count 196,000. Bilirubin is normal, ALT is normal, AST is normal, alkaline phosphatase is slightly elevated at 114. Lipase is normal. Plasma lactic acid is normal. CT scan and ultrasound independently reviewed and radiology report reviewed. HIDA scan independently reviewed, but no radiology report at this time. ASSESSMENT AND PLAN: A 58-year-old female with epigastric pain. Epigastric pain and right upper quadrant pain. At this time, on preliminary review, the HIDA scan looks normal to me, but I will wait for the official report. That being said, she has had a normal ultrasound and a normal CT scan. I am unsure if this is biliary in origin, especially in the context of where it hurts when she bends over. It sounds more musculoskeletal. Unless the HIDA scan comes back with official report saying it is abnormal, I would probably avoid any surgical intervention on her right now, but I will continue to follow her while she is in the hospital. cc: Boone Edwards MD
--- NOTE | 2018-06-20 17:50 | NEPHROLOGY CONSULTATION ---
DATE: 06/20/2018 REASON FOR ADMISSION: Abdominal pain associated with nausea and vomiting. REASON FOR CONSULT: Acute kidney injury on CKD stage 3B. PHYSICIAN REQUESTING CONSULT: Dr. Cota. HISTORY OF PRESENT ILLNESS: Ms. Slade is a 58-year-old, female who is known to our outpatient services for chronic kidney disease stage 3B. The patient last seen in our office in August 2017, had a creatinine of 2. She does have history of proteinuria and chronic lower extremity swelling associated with hypertension. Unfortunately, patient states that for the last month she has had nausea and vomiting with abdominal pain that has waxed and waned. In the last several days, she has developed some right upper quadrant pain. This has worsened with nausea and vomiting that developed last Sunday. She states that she has had some loose stools. She is to the point where she cannot keep anything down. She has attempted to take most of her medications that are from home. She had a CT of the abdomen obtained which showed calcification near the pancreatic head. Ultrasound follow-up was recommended showing a normal gallbladder with a HIDA scan ordered. The patient was subsequently admitted for further workup and evaluation. She is awaiting a bed on the floor. In the emergency room, it was found that her BUN was 38 but a creatinine of 5. Her CO2 was 25. Glucose was stable at 167. Urinalysis was basically unremarkable with 150 of glucose and a small amount of hematuria and 300 mg protein. PAST MEDICAL HISTORY: She is positive for chronic kidney disease stage 3B. Patient has a baseline creatinine of 2 to 2.2. Diabetes mellitus type 2, hypertension, history of reflux. She has anemia of chronic disease, iron deficiency anemia. Hyperlipidemia, history of constipation, migraines, TIAs approximately 3 years ago. SURGICAL HISTORY: Hysterectomy. SOCIAL HISTORY: She lives in [place]. She lives with her boyfriend. She has children who are . She is employed and works at [employer] in [place]. Denies tobacco, alcohol or illicit drug use. FAMILY HISTORY: She has a daughter who has recently in April with a history of myocardial infarction with previous cardiac stenting. Sister with myocardial infarction. Grandmother also had a myocardial infarction. Father had 2 myocardial infarctions, diabetes. Mother had hypertension. No renal disease in family. CURRENT ALLERGIES: Listed as metformin and pantoprazole. HOME MEDICATIONS: Aspirin, Prilosec, Lantus, multivitamin and Catapres. REVIEW OF SYSTEMS: Times 10, the patient currently denies chest pain. No increased work of breathing. Positive for nausea and emesis. Positive for diarrhea. This has waxed and waned with increased worsening in the past week. Positive for abdominal pain and discomfort. No fever or chills. No recent falls. No hematuria, hematochezia or hemoptysis. VITAL SIGNS: The patient's previous temperature of 98.4. Her most recent vital signs, blood pressure 189/69, heart rate is 92, respirations are 14. She is currently nauseated and dry heaving. She has had 0 recorded in or out. LABS: The patient's most recent labs: Sodium 144, potassium 4, chloride 111, CO2 is 25, BUN 38, creatinine 5, glucose 167. Anion gap of 8. Calcium of 9.2, albumin is 3.3. Plasma lactate 0.7. Her lipase is 16. White count is 7.65, hemoglobin 9.8, hematocrit 31.7 with a platelet count of 196. Urinalysis is positive for proteinuria, glucose, hematuria. Negative for leukocytes. The patient has urine electrolytes obtained. FENa score is indicated at 9.82%, more intrarenal. PHYSICAL EXAMINATION: General: This is a 58-year-old, female , who appears chronically ill. She is currently having dry heaves. Skin: Warm and dry. HEENT: Normocephalic, atraumatic. Conjunctiva is pale pink. She has KIMBERLEY. Mucous membranes are dry. Neck: Supple. Trachea midline. No evidence of JVD in the upright position. Cardiovascular: She is regular rate and rhythm. No murmur or gallop appreciated. Lungs: Clear to auscultation anteriorly. Equal excursion on room air. Abdomen: Protuberant, nondistended. Positive bowel sounds. Genitourinary: Not inspected. Patient states that she has not voided since she has been there. Extremities: Have 1+ lower extremity pitting edema. Pulses are palpable. Neurological: She is alert and oriented x3. ASSESSMENT AND PLAN: 1. Acute kidney injury on chronic kidney disease stage 3. Patient's baseline creatinine is 2 to 2.2. We agree with continuing her normal saline at 75 mL an hour. We will monitor her labs. This is possibly intrarenal acute tubular necrosis versus volume depletion versus progression of her CKD. We will observe her labs over the next 24 to 48 hours. No indications for acute dialysis at this time. 2. Electrolytes and acid-base balance. These are stable. 3. Anemia. This is low, but stable. 4. Right upper quadrant pain. This is currently being evaluated by Gastroenterology. She has been given Zofran for nausea. 5. Hypertension. This may be multifactorial secondary to volume depletion. The patient has not received her home medications and she is currently having nausea with dry heaves. Hydralazine has been ordered with labetalol p.r.n. as indicated. I would like to thank you for allowing us to follow with this patient. Dictated by HERMELINDO Sampson for Daniel Colon MD Face to face encounter, data reviewed, discussed with Sadi Beckford on 06/20/18. I agree with the above assessment and plan of care. cc: HERMELINDO Sampson MD [facility]
[2018-06-20] MEDS: BASAGLAR SUBQ SCH (21:51)
[2018-06-20] MEDS: CATAPRES PO SCH (21:52)
--- NOTE | 2018-06-21 00:56 | CONSULTATION ---
DATE OF CONSULTATION: 06/20/2018 CONSULTING PHYSICIAN: Dr. Cota. REASON FOR CONSULT: Abdominal pain. HISTORY: This is a 58-year-old white female patient of Dr. Dunham, who had seen her during her previous admission that was in August 2017. The patient had presented with abdominal pain. At that time, it was thought that she had ischemic bowel disease. She had had EGD and colonoscopy earlier. She was brought back to the emergency room today with complaints of abdominal pain. She points toward the right upper quadrant area. She tells me that initially she had pain in the right upper quadrant area when she would bend over, and it would get better when she stood upright and the pain did not continue longer. But now the pain is constant, and it is located in the right upper quadrant area. She tells me that the pain has been severe enough at times that she had become nauseated and has had emesis as well. She denies any hematemesis or coffee-ground emesis. She denies postprandial nausea or vomiting. She has been able to eat and has not had any weight loss. She denies any change in her bowel habits. She denies diarrhea, blood, or mucus in her stool. Has not had any melena. She has had no fever or chills. Denies any chest pain, shortness of breath, or palpitations. Has not any cough, sputum, or hemoptysis. She denies dysuria, polyuria, or hematuria. PAST MEDICAL HISTORY: Significant for history of gastroesophageal reflux disease. She carries a diagnosis of gastritis and duodenitis and was found to have fundic gland polyps. Other medical problems: She has history of diabetes, hypertension, hyperlipidemia, chronic kidney disease. She carries a diagnosis of migraines and TIA as well. SURGERY: She has had hysterectomy. MEDICATIONS: Prior to hospitalization, she was on aspirin. Also took Catapres, multivitamin, iron, and Prilosec. She was on Lantus insulin. ALLERGIES: Claims to be allergic to metformin which caused her to have diarrhea, and pantoprazole also caused her diarrhea. SOCIAL HISTORY: She is and lives with her . She does not smoke, does not drink, does not use illicit drugs. FAMILY HISTORY: Noncontributory. REVIEW OF SYSTEMS: As per HPI as above. PHYSICAL EXAMINATION: General: On examination, this is a very pleasant female. She was seen, examined, and evaluated in the emergency room awaiting transfer to the floor. Vital signs: Temperature 98.4 degrees, pulse of 78 per minute, breathing of 18. Her blood pressure initially was high. During my examination, her blood pressure had come down to 165/88. O2 saturation was more than 95% on room air. HEENT: Head: Atraumatic, normocephalic. Eyes: Conjunctivae are normal. Sclerae anicteric. Nose: Nares are patent. No discharge. Mouth: Buccal mucosa is moist. Throat is normal. Neck: Supple. No lymphadenopathy or thyromegaly. Chest: Bilaterally symmetrical, but she tender in the right side just above the costal margin and she did have point tenderness there. Breath sounds are audible bilaterally. No rhonchi or crepitations could be heard. Heart: Audible. No murmur could be appreciated. Abdomen: Full, soft. Tender in the right upper quadrant area, predominantly along the costal margin along the midclavicular line. The tenderness was more pronounced along the rib. No crepitations could be heard. No mass or visceromegaly noted. Bowel sounds are audible. Extremities: No pedal edema noted. Central nervous system: Grossly intact. No sensory or motor deficit was noted. LABORATORIES: Labs were reviewed which showed WBC was 7.65, hemoglobin 9.8, hematocrit 31.7. MCV was 81.1. Platelets were 196,000. Sodium 144, potassium 4.0, chloride 111, bicarb was 25, BUN was 38, creatinine 5.0, glucose 167. AST was 13, ALT 9, total bilirubin was less than 0.15. Albumin was 3.3. Urinalysis was negative. IMAGING STUDIES: CT scan of the abdomen and pelvis showed no evidence of ascites or pericardial effusion. She did have mild constipation. Otherwise stable CT scan. She had her HIDA scan with ejection fraction done. During my consult, her results were still pending. IMPRESSION: This is a 58-year-old female who has presented with right upper quadrant pain with normal liver function tests and CT scan unremarkable. Interestingly, her tenderness is more pronounced on her right ribs along the costochondral junction. She does have significant point tenderness, suggestive of costal chondritis rather than visceral pain. Initially, she did have pain while bending down rather than in any position, and it was not associated with any gastrointestinal symptoms. Again to me, pending her HIDA scan, it appeared the pain is mostly musculoskeletal to begin with. Her nausea and vomiting could be related to the severity of the pain or may be related to her renal insufficiency and part of symptoms of uremia. PLAN: I would continue her symptomatic treatment and wait for official report of HIDA scan. She has had endoscopies, and I do not think she needs to have another endoscopy at this point. Depending on her progress, further plans will be made. I have explained the findings and plan to the patient and answered all the pertinent questions. We will follow. cc: Melvin Hernadez MD
[2018-06-21 05:56] LABS: EOS# 0.02 X1000 (0.0-0.7); EOS% 0.3 % (0.0-10.0); HEMATOCRIT 27.4 % (37.0-47.0); HEMOGLOBIN 8.3 g/dL (12.0-16.0); LYMPH# 1.48 X1000 (1.2-3.4); LYMPH% 23.5 % (20.5-51.1); MCH 25.2 PG (27-31); MCHC 30.3 g/dL (33-37); MCV 83.3 FL (81-99); MONO# 0.45 X1000 (0.11-0.59); MONO% 7.2 % (1.7-9.3); MPV 12.4 FL (7.4-10.4); NEUT# 4.34 X1000 (1.4-6.5); PLT 154 X1000 (130-400); RBC 3.29 XMIL (4.2-5.4); RDW 15.5 % (11.5-14.5); WBC 6.29 X1000 (4.8-10.8)
[2018-06-21 06:03] LABS: ALBUMIN 2.5 g/dL (3.5-5.0); CALCIUM 8.1 mg/dL (8.8-10.2); CREATININE 4.7 mg/dL (0.5-0.9); PHOSPHORUS 4.3 mg/dL (2.7-4.5); POTASSIUM 4.2 mmol/L (3.5-5.1)
[2018-06-21] MEDS: PRILOSEC PO SCH (06:10)
[2018-06-21] MEDS: HEPARIN SUBQ SCH ×3 (06:11→21:11)
[2018-06-21] MEDS: HUMALOG SUBQ SCH ×4 (06:26→21:11)
--- NOTE | 2018-06-21 08:02 | GENERAL SURGERY PROGRESS NOTE ---
DATE: 06/21/2018 SUBJECTIVE: Patient says she is feeling a little bit better. Official report from the HIDA scan is back and it is read as normal. OBJECTIVE: Vital Signs: Patient is currently afebrile. Her vital signs stable. She did have a temperature max of 100.0 degrees. Remainder of vital signs have been stable. General: No acute distress, resting comfortably. HEENT: Normocephalic, atraumatic. Pupils equal, round, reactive to light. Mucous membranes moist. Oropharynx benign. Neck: Supple. Trachea midline. Cardiovascular: Regular rate and rhythm. Lungs: Grossly clear. Abdomen: Soft. Some epigastric and right upper quadrant tenderness, it is along the costal margin. Extremities: Moves all extremities. Neurologic: Grossly intact. Skin: No signs of jaundice. Vascular: All extremities perfused. LABORATORY DATA: Pending for this morning. HIDA scan as noted above, it is normal. ASSESSMENT AND PLAN: A 58-year-old with epigastric and right upper quadrant pain. Epigastric right upper quadrant pain. At this time, she has had 3 imaging studies that did not show her gallbladder being an issue. I reviewed Dr. Hernadez's note. No immediate plans for EGD at this point, given the fact a normal HIDA scan, normal CT scan and normal ultrasound and essentially normal white blood cell count and bilirubin, AST and ALT. I would hold off on any kind of surgical intervention. From a surgical point of view, nothing to do. I will be available if needed. My partners will be available over the weekend if needed. cc: Boone Edwards MD
[2018-06-21] MEDS: ASPIRIN PO SCH (09:07)
[2018-06-21] MEDS: CENTRUM TABLET PO SCH (09:07)
[2018-06-21] MEDS: CATAPRES PO SCH ×2 (09:07→21:11)
[2018-06-21] MEDS: NS 1,000 ML IV SCH (09:08)
[2018-06-21 12:19] LABS: IRON SATURATION 38 %; TIBC 183 ug/dL; TOTAL IRON 70 ug/dL (49-151); UNBOUND IRON 113 ug/dL (112-346)
[2018-06-21] MEDS ORDERED: D5 1/2 NS 1,000 ML IV SCH (13:30)
--- NOTE | 2018-06-21 13:32 | NEPHROLOGY PROGRESS NOTE ---
DATE: 06/21/2018 SUBJECTIVE: She states she feels much better today. Less nausea. She is on clear liquids but she is tolerating these well. OBJECTIVE: Vital Signs: Blood pressure 121/56, heart rate 63, respiration 18, afebrile. Intake and output are incomplete. General: No acute distress. Skin: Warm and dry. Eyes: Conjunctivae are pink. Neck: Neck veins are not visible. Heart: Regular. Lungs: Equal. No crackles. Abdomen: Soft, nontender. Bowel sounds present. Extremities: Have no edema, clubbing, or cyanosis. IMPRESSION AND PLAN: Acute kidney injury overlying chronic kidney disease. Her baseline creatinine over last year was in the 3 to 4 range. Modest improvement with IV fluids. Continue a conservative approach and observe. She does have significant proteinuria and concomitant hypoalbuminemia. These findings may complicate her recovery. She understands that she has advanced stage 4 kidney disease that may require dialysis. cc: Daniel Colon MD
--- NOTE | 2018-06-21 13:48 | PROGRESS NOTE ---
DATE: 06/21/2018 INTERVAL HISTORY: Her HIDA scan was negative. It is thought that her abdominal pain was likely musculoskeletal, and her nausea vomiting could have been related to hypertensive emergency. Overnight no other acute events. SUBJECTIVE: The patient is feeling significantly better. She has not had any more nausea or vomiting overnight. She denies any chest pain or abdominal pain except mild soreness in her right lower rib cage. She has not had a bowel movement. She denies any complaints with urination. She did have a one time temperature of 100. Her blood pressure has been in acceptable range. OBJECTIVE: Vital Signs: Currently temperature is 98 degrees, pulse 60, blood pressure 130/40, saturating 98% on 2 L nasal cannula. PHYSICAL EXAMINATION: General: Appears morbidly obese, not in any acute distress. HEENT: Oral cavity is moist. Lungs: Air entry bilaterally equal. No wheeze, rhonchi, or crackles. Cardiovascular: S1, S2 normal. Systolic murmur at right 2nd intercostal space without any rub or gallop. Crescendo-decrescendo in nature. Abdomen: Soft and nontender. Active bowel sounds. She does have localized tenderness in right lower rib cage. Extremities: Bilateral lower extremity mild edema. LABORATORY DATA: Today suggestive of no leukocytosis. Hemoglobin of 8.3, platelets of 154,000. Normal electrolytes with hyperchloremia, persistently elevated BUN and creatinine without hyperkalemia. She does have hyperchloremia, slightly lower bicarbonate levels. MICROBIOLOGY: No microbiological data. IMAGING: HIDA scan performed had negative examination. ASSESSMENT AND PLAN: 1. Acute intractable nausea and vomiting with abdominal pain. Her hypertensive emergency could have likely caused it, and there is also a possibility of costochondritis. Continue as needed Zofran. Her nausea and vomiting is improving. I will consider stopping intravenous fluids once the patient is able to take by mouth adequately. 2. Hypertensive emergency. Continue the patient on home clonidine and as needed hydralazine and labetalol. 3. History of insulin-dependent diabetes mellitus. Continue home glargine and sliding scale insulin. 4. Anemia of chronic disease. Continue home multivitamin with minerals. The iron panel suggests anemia of chronic disease. 5. Acute kidney injury on chronic kidney disease stage 3. It appears her blood urea nitrogen and creatinine have been stable. It appears that she had probably acute tubular necrosis or acute kidney injury secondary to hypertensive emergency, or this could very well be progression of chronic kidney disease. Nephrology on board. No urgent need of hemodialysis. 6. Deep venous thrombosis prophylaxis. Heparin subcutaneous. 7. Disposition. The patient remains inside the hospital. I will transfer her out of Coronary Care Unit to routine medical floor. I anticipate discharge in the next 24-48 hours. cc: Galen Cota MD
--- NOTE | 2018-06-21 14:06 | PROGRESS NOTE ---
DATE: 06/21/2018 SUBJECTIVE: Patient states she feels a little better. She states the pain has slightly improved. OBJECTIVE: Vital Signs: Temperature 98 degrees, pulse 60 respirations 16, and blood pressure 130/41. General: Patient is awake and alert in no acute distress. Respiratory: Lung sounds essentially clear. Abdomen: Soft. Some mild tenderness in the right upper quadrant around the rib area. Otherwise, bowel sounds are present. LABORATORY: Hematology: WBCs 6.29, hemoglobin 8.3, hematocrit 27.4, MCV 83.3, and platelets 154,000. Chemistry: Sodium 140, potassium 4.2, chloride 111, CO2 21, BUN 39, creatinine 4.7, glucose 108, total bilirubin less than 0.15. AST 13, ALT 9, and alkaline phosphatase 114. ASSESSMENT AND PLAN: 1. Abdominal pain. She has had workup including ultrasound of the abdomen and HIDA scan. Ultrasound was negative and a HIDA scan showed 79% ejection fraction. She has also been seen by [facility] who did not feel she would require surgery. 2. Acute kidney injury. She has been seen by Nephrology. 3. Nausea and vomiting has improved. We will continue to follow during her hospital course. Recommend she follow up with us as an outpatient. I have discussed this case with Dr. Hernadez. Dictated by HERMELINDO Lozano for Melvin Hernadez MD cc: HERMELINDO Garcia MD
[2018-06-21] MEDS: BASAGLAR SUBQ SCH (22:50)
[2018-06-22] MEDS: HEPARIN SUBQ SCH ×4 (06:07→21:09)
[2018-06-22] MEDS: PRILOSEC PO SCH (06:07)
[2018-06-22] MEDS: HUMALOG SUBQ SCH ×4 (06:08→20:07)
[2018-06-22 07:35] LABS: MCH 25.4 PG (27-31); MCHC 30.2 g/dL (33-37)
[2018-06-22 08:02] LABS: HEMATOCRIT 28.1 % (37.0-47.0); HEMOGLOBIN 8.5 g/dL (12.0-16.0); MCV 83.9 FL (81-99); MPV 12.6 FL (7.4-10.4); RBC 3.35 XMIL (4.2-5.4); RDW 15.4 % (11.5-14.5); WBC 5.9 X1000 (4.8-10.8)
[2018-06-22 08:11] LABS: ALBUMIN 2.8 g/dL (3.5-5.0); CALCIUM 8.1 mg/dL (8.8-10.2); PHOSPHORUS 4.9 mg/dL (2.7-4.5); POTASSIUM 4.4 mmol/L (3.5-5.1)
[2018-06-22 08:13] LABS: CREATININE 5.2 mg/dL (0.5-0.9)
[2018-06-22] MEDS: ASPIRIN PO SCH (10:27)
[2018-06-22] MEDS: CATAPRES PO SCH ×2 (10:27→20:07)
[2018-06-22] MEDS: CENTRUM TABLET PO SCH (10:27)
--- NOTE | 2018-06-22 14:39 | NEPHROLOGY PROGRESS NOTE ---
DATE: 06/22/2018 SUBJECTIVE: She states she is still having some pain but no nausea, vomiting, diarrhea. No shortness of breath. OBJECTIVE: Vital Signs: Blood pressure 154/47, heart rate 68, respiration 18, afebrile. General: No acute distress. Skin: Warm and dry. Conjunctivae are pink. Neck: Neck veins are not visible. Heart: Regular. No gallops. Lungs: Equal. No crackles or wheezes. Abdomen: Soft, nontender. Bowel sounds present. Extremities: With no edema, clubbing or cyanosis. IMPRESSION: Acute kidney injury overlying chronic kidney disease. Baseline creatinine around 3.5. Today's labs are pending. It is certainly possible that she has experienced progression and may be at or near end-stage kidney disease. If this is true she does not meet criteria for dialysis at this time. I will follow along. cc: Daniel Colon MD
[2018-06-22] MEDS: BASAGLAR SUBQ SCH (20:08)
[2018-06-23] MEDS: HUMALOG SUBQ SCH (06:05)
[2018-06-23] MEDS: PRILOSEC PO SCH (06:16)
[2018-06-23] MEDS: HEPARIN SUBQ SCH (06:17)
[2018-06-23 07:26] VITALS: BP 189/58
[2018-06-23 07:31] LABS: HEMATOCRIT 29.4 % (37.0-47.0); HEMOGLOBIN 8.9 g/dL (12.0-16.0); MCHC 30.3 g/dL (33-37); MCV 82.6 FL (81-99); MPV 12.4 FL (7.4-10.4); RBC 3.56 XMIL (4.2-5.4); RDW 15.2 % (11.5-14.5); WBC 6.16 X1000 (4.8-10.8)
[2018-06-23 08:00] LABS: ALBUMIN 2.6 g/dL (3.5-5.0); CALCIUM 7.8 mg/dL (8.8-10.2); PHOSPHORUS 5.2 mg/dL (2.7-4.5); POTASSIUM 4.7 mmol/L (3.5-5.1)
[2018-06-23 08:04] LABS: CREATININE 5.6 mg/dL (0.5-0.9)
[2018-06-23] MEDS ORDERED: CATAPRES PO SCH (09:00)
[2018-06-23] MEDS: ASPIRIN PO SCH (10:12)
[2018-06-23] MEDS: CENTRUM TABLET PO SCH (10:12)
--- NOTE | 2018-06-23 11:00 | DISCHARGE SUMMARY ---
ADMISSION DATE: 06/20/2018 DISCHARGE DATE: 06/23/2018 DISCHARGE DIAGNOSES: 1. Acute intractable nausea and vomiting with abdominal pain, likely due to hypertensive emergency. 2. Acute right-sided costochondritis. 3. Hypertensive emergency. 4. Chronic kidney disease stage 5. 5. Acute kidney injury on chronic kidney disease stage 3. OTHER DIAGNOSES: 1. History of essential hypertension. 2. History of insulin-dependent diabetes mellitus. 3. Anemia of chronic disease. 4. Chronic kidney disease. 5. Allergic reaction to previous intravenous iron formulations in the past. CONSULTATIONS DURING HOSPITALIZATION: 1. Gastroenterology, Dr. Hernadez. 2. Nephrology, Dr. Colon. VITAL SIGNS: At the time of discharge, temperature 98.5 degrees, pulse 66, blood pressure 180/50, saturation 96% on room air. PHYSICAL EXAMINATION: General: Does not appear in any acute distress. HEENT: Oral cavity is moist. Lungs: Air entry bilaterally equal. No wheeze, rhonchi, or crackles. Cardiovascular: S1 and S2 normal. No murmur, rub, or gallop. Abdomen: Soft, nontender. Active bowel sounds. She had mild tenderness in right lower ribcage on palpation. Extremities: Bilateral lower extremity edema extending up to midshin level. SIGNIFICANT LABORATORY STUDIES DURING HOSPITAL ADMISSION: Her hemoglobin was 8.9 at the time of discharge. Platelet count was 165,000. She did not have any leukocytosis during hospital admission. Her BUN was 46 and creatinine of 5.6 at the time of discharge. Her phosphorus was also 5.2. IMAGING DURING HOSPITAL ADMISSION: Abdomen and pelvis CT had suggested improvement in ascites and pericardial effusion as compared to previous CAT scan performed in August 2017. There were no new acute findings. Abdominal ultrasound had negative exam. A HIDA scan had suggested no evidence of acute cholecystitis. DISCHARGE MEDICATIONS: Aspirin 81 mg daily, insulin glargine 25 units at nighttime, clonidine 0.1 mg t.i.d. which was increased from her home dose of 0.1 mg b.i.d., lidocaine 5% patch 5 patches to be applied over right lower ribcage, multivitamin, iron, folic acid tablet 1 tablet daily, omeprazole 40 mg daily. HOSPITAL COURSE SUMMARY: Ms. Slade is a 58-year-old, lady who came in with chief complaints of right upper quadrant abdominal pain of about 1 month's duration. However, on the day of presentation, she had started developing intractable nausea, vomiting , and loose stools. When she came into the emergency room, she was found to have a hypertensive emergency with systolic blood pressure over 230 to 250 and diastolic blood pressure in the 80s. She was admitted and was started on antihypertensive medications with multiple intravenous antihypertensive pushes and intravenous fluids following which her symptoms started improving. There was a concern for acute cholecystitis, considering her obesity and female gender. However, CAT scan of the abdomen pelvis, abdominal ultrasound, and HIDA scan did not detect any acute cholecystitis or any acute abdominal pathology. With better control of blood pressure on clonidine and intravenous p.r.n. medications, and symptomatic treatment with antiemetics, her symptoms had started improving. It was thought that her abdominal pain was most likely related to costochondritis, which was improving at the time of discharge. Her nausea, vomiting, and abdominal pain had resolved after better management of blood pressure. She was also found to have acute kidney injury on chronic kidney disease stage 3 to stage 4. It was thought that this could be related to progression of chronic kidney disease stage 5. She did not have significant electrolyte or acid-based disturbance that required dialysis. She was provided a prescription for a basic metabolic panel and was advised to follow up with Dr. Colon as an outpatient. She was also found to have anemia of chronic disease and was continued on multivitamins, and she was given a prescription for a CBC. DISPOSITION: The patient was, at the time of discharge, ambulatory. and she was discharged to home. More than 30 minutes were spent in discharging the patient. All of her questions have been answered. cc: MD LOGAN Krause
== END 2018-06-23 11:17 | disposition home or self-care (01) | DRG 305 ==
LOC: ED 00:37 → EDIPHOLD 06:19 → SUATTDRO 06:19 → 3S 15:33 → 3N 06-21 14:35
PROVIDERS: ATTEND Internal Medicine
CPT/HCPCS: 74176; 76705; 78227; 80053; 80069; 81001; 82570; 82728; 82948; 83036; 83540; 83550; 83605; 83690; 84156; 84300; 84466; 85025; 85027; 93005; 96361; 96372; 96374; 96375; 96376; 97161; 99285; A9270; A9537; J0360; J1170; J1644; J1815; J2405; J7030; XXXXX

== ENCOUNTER 2019-07-05 09:53 | Observation (INO) ==
[2019-07-05] MEDS ORDERED: NITROGLYCERIN TOP ONE (10:19)
[2019-07-05 10:36] LABS: BASO# 0.01 X1000 (0.0-0.2); BASO% 0.1 % (0.0-0.8); EOS# 0.03 X1000 (0.0-0.7); EOS% 0.3 % (0.0-10.0); HEMATOCRIT 38.8 % (37.0-47.0); HEMOGLOBIN 12.1 g/dL (12.0-16.0); IMM GRAN# 0.03 X1000 (0.0-0.04); IMM GRAN% 0.3 % (0.0-0.5); LYMPH# 2.19 X1000 (1.2-3.4); LYMPH% 23.8 % (20.5-51.1); MCH 27.3 PG (27-31); MCHC 31.2 g/dL (33-37); MCV 87.6 FL (81-99); MONO# 0.67 X1000 (0.11-0.59); MONO% 7.3 % (1.7-9.3); NEUT# 6.29 X1000 (1.4-6.5); NEUT% 68.2 % (42.2-75.2); PLT 190 X1000 (130-400); RBC 4.43 XMIL (4.2-5.4); WBC 9.22 X1000 (4.8-10.8)
[2019-07-05 10:44] LABS: INR 1.24; PROTIME 15.8 Seconds (11.0-16.0)
[2019-07-05 10:45] LABS: PTT 36.1 Seconds (22.3-41.8)
[2019-07-05 10:56] LABS: ALB/GLOB RATIO 1.3; ALBUMIN 3.9 g/dL (3.5-5.0); CALCIUM 8.7 mg/dL (8.8-10.2); CREATININE 3.4 mg/dL (0.5-0.9); POTASSIUM 4.5 mmol/L (3.5-5.1); TOTAL BILIRUBIN 0.19 mg/dL (0.20-1.00); TOTAL PROTEIN 6.8 g/dL (6.3-8.3)
--- NOTE | 2019-07-05 10:57 | Diag Imaging Result Doc PS360 ---
EXAM: CHEST-2 VIEWS - 07/05/2019 HISTORY: CP TECHNIQUE: Chest two views COMPARISON: 01/06/2018 FINDINGS: Heart size is normal. There has been interval insertion of right subclavian central venous catheter with its tip at the right atrium. There is mild interstitial scarring. The lungs appear clear of acute changes. There is no pleural effusion or pneumothorax identified. IMPRESSION: No evidence of acute disease. Electronically signed by Nishant Olmedo 07/05/2019 10:55 AM
--- NOTE | 2019-07-05 14:16 | EKG Report ---
Test Performed on : 07/05/2019 1:22:24 PM Test Reason : CP Blood Pressure : / mmHG Vent. Rate : 063 BPM Atrial Rate : 063 BPM P-R Int : 132 ms QRS Dur : 080 ms QT Int : 472 ms P-R-T Axes : 002 -01 047 degrees QTc Int : 483 ms Normal sinus rhythm. Normal ECG When compared with ECG of 05-JUL-2019 09:57, (Unconfirmed) No significant change was found Unconfirmed Result
--- NOTE | 2019-07-05 14:21 | EKG Report ---
Test Performed on : 07/05/2019 09:57:24 AM Test Reason : CP Blood Pressure : / mmHG Vent. Rate : 070 BPM Atrial Rate : 070 BPM P-R Int : 130 ms QRS Dur : 082 ms QT Int : 434 ms P-R-T Axes : 007 012 039 degrees QTc Int : 468 ms Normal sinus rhythm. Normal ECG When compared with ECG of 12-MAR-2019 14:34, No significant change was found Unconfirmed Result
--- NOTE | 2019-07-05 16:34 | PROVIDER DOCUMENTATION ---
This chart was entered by Ashley Ybarra Scribe, acting as scribe for Nato Rivas MD. HPI-Chest Pain - General Chief Complaint: Chest Pain Stated Complaint: Chest Pain Time Seen by Provider: 07/05/19 10:07 Source: patient Allergies/Adverse Reactions: Patient Allergies Allergy/AdvReac Type Severity Reaction Status Date / Time iron AdvReac Intermediate "pain all Verified 07/05/19 10:13 over" metformin AdvReac Intermediate DIARRHEA Verified 07/05/19 10:13 pantoprazole sodium * AdvReac Intermediate DIARRHEA Verified 07/05/19 10:13 [From Protonix] Home Medications: Home Medication List Medication Instructions Recorded Confirmed Last Taken Type Aspirin 81 mg PO DAILY 07/19/16 05/14/19 05/13/19 11:00 History 81 Insulin Glargine [Lantus] 25 unit SUBQ QHS 30 Days 03/21/17 05/14/19 03/11/19 Rx insuln.pen Multivitamin/Iron/Folic Acid 1 ea PO DAILY 30 Days tab 03/21/17 05/14/19 05/13/19 09:00 Rx [Multi Complete-Iron Tablet] 1 Clonidine [Catapres] 0.1 mg PO TID 01/20/19 05/14/19 05/13/19 21:00 History 0.1 Iron,Carbonyl [Iron] 27 mg PO DAILY 01/20/19 05/14/19 05/13/19 11:00 History 27 LISINOpril [Prinivil] 20 mg PO BID 01/20/19 05/14/19 05/13/19 21:00 History 20 Linagliptin [Tradjenta] 5 mg PO DAILY 01/20/19 05/14/19 03/16/19 09:00 History Omeprazole [Prilosec] 40 mg PO DAILY 02/05/19 05/14/19 05/13/19 09:00 History 40 Amlodipine [Norvasc] 10 mg PO DAILY 03/12/19 05/14/19 05/13/19 11:00 History 10 Apixaban [Eliquis] 5 mg PO BID #60 tab 05/14/19 Unknown Rx Hydrocodone/APAP 7.5 mg/325 mg 1 ea PO Q6H PRN PRN #20 tab 05/14/19 Unknown Rx [[place]-7.5] Ondansetron HCl [Zofran] 4 mg PO Q4H PRN PRN #20 tab 05/22/19 Unknown Rx - History of Present Illness-CP Nature of Presenting Problem: 59 y/o female presents to the ED via EMS with complaint of chest pain. The patient states she was at dialysis when sternal chest pain radiating to her left breast started and was 7/10, 4/10 now on exam. The patient has a history of hypertension, chronic renal failure, and diabetes and previous visits for chest pain but no cardiac history or history of [place]. Staff reports the patient was given 81 mg. aspirin x 4 by EMS en route. The patient states she is on [place] due to port clotting up and gives a history of right arm fistula with surgeries in this area in March and April. She gives a history to Metformin, Protonix, and iron. Location: reports: substernal Chest Pain Radiation: reports: other (left breast) Onset/Duration: just prior to arrival Timing: still present, improving Context/Activities at Onset: reports: light activity (at dialysis) Aspirin Treatment Today: 81 mg x 4 Prior Chest Pain/Cardiac Workup: denies: heart attack Similar Symptoms Previously?: Yes Recently Seen Here or By Another Healthcare Provider: No Review of Systems - Adult - REVIEW OF SYSTEMS - ADULT Constitutional: denies: chills, fever, weight loss Eyes: reports: no symptoms reported Ears, Nose, Mouth & Throat: reports: no symptoms reported Cardiovascular: reports: chest pain. denies: palpitations, syncope Respiratory: denies: hemoptysis, shortness of breath, wheezing Gastrointestinal: denies: hematemesis, rectal bleeding, vomiting Genitourinary: reports: no symptoms reported Musculoskeletal: reports: no symptoms reported Integumentary: reports: no symptoms reported Neurological: reports: no symptoms reported Psychiatric: reports: no symptoms reported Endocrine: reports: no symptoms reported Hematologic/Lymphatic: reports: no symptoms reported Allergic/Immunologic: reports: no symptoms reported All Other Systems: Reviewed and Negative Past History - Adult - PAST MEDICAL HISTORY-ADULT Review of Records: reports: Old Records Reviewed, Nursing Assessment Review, M edications Reviewed Major Childhood Illnesses: reports: denies history Cardiovascular: reports: HTN, hyperlipidemia Respiratory: reports: denies history Gastrointestinal: reports: GERD, other (constipation) Obstetrical/Gynecological: reports: denies history Genitourinary: reports: denies history Musculoskeletal: reports: denies history Neurological: reports: headaches/migraines Psychiatric: reports: denies history Endocrine/Immune: reports: Diabetes Other Conditions: reports: denies history - PRIOR SURGERIES/PROCEDURES Surgical/Procedure History: reports: hysterectomy - IMMUNIZATION STATUS Childhood Immunizations: UTD Flu Vaccine: UTD - FAMILY HISTORY Family History: reviewed, not pertinent - SOCIAL HISTORY Smoking: non-smoker Living Situation: family Physical Exam-General - PHYSICAL EXAM-ADULT Initial Vital Signs Reviewed: Yes - CONSTITUTIONAL General Appearance: alert, no apparent distress - HEAD, EARS, NOSE, MOUTH & THROAT HENMT: normocephalic/atraumatic - NECK Neck: full range of motion, supple - RESPIRATORY Respiratory: lungs clear, normal breath sounds. negative: rales, rhonchi, wheezing - CARDIOVASCULAR Cardiovascular: regular rate, rhythm, no gallop, no JVD, no murmur, other (1+ e ledy bilaterally) - MUSCULOSKELETAL Extremity: pedal edema (1+ bilaterally). negative: deformity - SKIN Integumentary: normal color, warm/dry. negative: diaphoresis - NEUROLOGIC Neurologic: grossly normal - PSYCHIATRIC Psych/Mental Status: normal mood/affect, oriented x 3 - HEART Score HEART Score: Age: 45-65 Years HEART Score: Troponin: 1-3x Normal Limit Progress - PLAN OF CARE/RESULTS Progress/Plan/Lab Results: Vital Signs - 8 hr 07/05/19 10:00 07/05/19 11:22 Temperature 97.2 F L Pulse Rate 72 61 Respiratory Rate 16 18 Blood Pressure 186/80 158/77 O2 Sat by Pulse Oximetry 99 98 Laboratory Results - last 24 hr 07/05/19 07/05/19 07/05/19 10:12 10:12 10:12 WBC RBC Hgb Hct MCV MCH MCHC RDW Std Deviation Plt Count MPV Immature Gran % (Auto) Neut % (Auto) Lymph % (Auto) Rush % (Auto) Eos % (Auto) Baso % (Auto) Immature Gran # (Auto) Neut # (Auto) Lymph # (Auto) Rush # (Auto) Eos # (Auto) Baso # (Auto) PT INR PTT (Actin FS) Sodium 137 Potassium 4.5 Chloride 95 L Carbon Dioxide 26 Anion Gap 16 BUN 12 Creatinine 3.4 H Estimated GFR/1.73 m2 17 BUN/Creatinine Ratio 4 Glucose 151 H Calculated Osmolality 276 Calcium 8.7 L Total Bilirubin 0.19 L AST 17 ALT 8 L Alkaline Phosphatase 108 H Creatine Kinase 60 Troponin T High Sens 28 H Yat-Y-Qpiwdxetbiq Pept 1080 H Total Protein 6.8 Albumin 3.9 Globulin 2.9 Albumin/Globulin Ratio 1.3 07/05/19 07/05/19 07/05/19 10:12 10:12 13:10 WBC 9.22 RBC 4.43 Hgb 12.1 Hct 38.8 MCV 87.6 MCH 27.3 MCHC 31.2 L RDW Std Deviation 15.0 H Plt Count 190 MPV 11.0 H Immature Gran % (Auto) 0.3 Neut % (Auto) 68.2 Lymph % (Auto) 23.8 Rush % (Auto) 7.3 Eos % (Auto) 0.3 Baso % (Auto) 0.1 Immature Gran # (Auto) 0.03 Neut # (Auto) 6.29 Lymph # (Auto) 2.19 Rush # (Auto) 0.67 H Eos # (Auto) 0.03 Baso # (Auto) 0.01 PT 15.8 INR 1.24 PTT (Actin FS) 36.1 Sodium Potassium Chloride Carbon Dioxide Anion Gap BUN Creatinine Estimated GFR/1.73 m2 BUN/Creatinine Ratio Glucose Calculated Osmolality Calcium Total Bilirubin AST ALT Alkaline Phosphatase Creatine Kinase 43 Troponin T High Sens Keg-O-Zrtypqmahmu Pept Total Protein Albumin Globulin Albumin/Globulin Ratio 07/05/19 13:10 WBC RBC Hgb Hct MCV MCH MCHC RDW Std Deviation Plt Count MPV Immature Gran % (Auto) Neut % (Auto) Lymph % (Auto) Rush % (Auto) Eos % (Auto) Baso % (Auto) Immature Gran # (Auto) Neut # (Auto) Lymph # (Auto) Rush # (Auto) Eos # (Auto) Baso # (Auto) PT INR PTT (Actin FS) Sodium Potassium Chloride Carbon Dioxide Anion Gap BUN Creatinine Estimated GFR/1.73 m2 BUN/Creatinine Ratio Glucose Calculated Osmolality Calcium Total Bilirubin AST ALT Alkaline Phosphatase Creatine Kinase Troponin T High Sens 28 H Ngo-S-Guuallsbchp Pept Total Protein Albumin Globulin Albumin/Globulin Ratio Orders Category Date Time Status Cardiac Monitoring DIRECTED Care 07/05/19 10:14 Active Oxygen Therapy- ED Nursing DIRECTED Care 07/05/19 10:14 Active Saline Loc NOW Care 07/05/19 10:14 Active CHEST-2 VIEWS [RAD] Stat Exams 07/05/19 10:14 Completed CBC WITH ELECTRONIC DIFF [HEME] Stat Lab 07/05/19 10:12 Completed CK PROFILE [SP CHEM] Stat Lab 07/05/19 10:12 Completed CK PROFILE [SP CHEM] Stat Lab 07/05/19 13:10 Completed COMPREHENSIVE METABOLIC PANEL [CHEM] Stat Lab 07/05/19 10:12 Completed PRO B-NATRIURETIC PEPTIDE Stat Lab 07/05/19 10:12 Completed PROTIME WITH INR [COAG] Stat Lab 07/05/19 10:12 Completed PTT [COAG] Stat Lab 07/05/19 10:12 Completed TROPONIN T HIGH SENSITIVITY Stat Lab 07/05/19 10:12 Completed TROPONIN T HIGH SENSITIVITY Stat Lab 07/05/19 13:10 Completed Nitroglycerin Med 07/05/19 10:19 Discontinued 1 inch TOP NOW ONE CP/SOB/Palp >45 yrs of Age Stat Oth 07/05/19 10:13 Ordered EKG [EKG] Stat Ther 07/05/19 10:14 Draft EKG [EKG] Stat Ther 07/05/19 12:50 Draft Transfer/Admit Order [TRANSFER] Routine Transfer 07/05/19 15:47 Ordered Result Diagrams: 07/05/19 10:12 07/05/19 10:12 - REASSESSMENT Reassessment #1 Time Reassessed: 12:51 Status: improving (The patient reports chest pain has resolved, exam is unchanged. Will await labs and if the patient continues to be pain free will discharge with instructions to follow-up on an outpatient basis.) - EKG 1 Time of EKG reading by physician:: 09:57 EKG Read and Signed by:: Nato Rivas EKG Interpretation (*Must complete 3 of following elements*): Normal Rate: 70 Rhythm: NSR [place]: normal SD Interval: normal 2 Time of EKG reading by physician:: 13:22 EKG Read and Signed by:: Nato Rivas EKG Interpretation (*Must complete 3 of following elements*): Normal Rate: 63 Rhythm: NSR [place]: normal ST Wave: normal - XRAY 1 XRAY Study: Chest (EXAM: CHEST-2 VIEWS - 07/05/2019 HISTORY: CP TECHNIQUE: Chest two views COMPARISON: 01/06/2018 FINDINGS: Heart size is normal. There has been interval insertion of right subclavian central venous catheter with its tip at the right atrium. There is mild interstitial scarring. The lungs appear clear of acute changes. There is no pleural effusion or pneumothorax identified. IMPRESSION: No evidence of acute disease. Electronically signed by Nishant Olmedo 07/05/2019 10:55 AM) Impression: Normal - CONSULTS/PCP/HOSPITALIST Notification #1 *Consult/PCP/Hospitalist*: Nupur Reichist Time Discussed: 15:44 Reason/Comments: chest pain Consult Disposition: Admit Departure - Departure Date of Disposition Decision: 07/05/19 Time of Disposition Decision: 15:44 DIAGNOSIS: Chest pain, CKD (chronic kidney disease), stage V Disposition: ADMITTED INPATIENT 09 Certified Medical Emergency: Emergent Condition: Good - Critical Care Note This patient required my direct & personal management of CC.: No Attestation - Physician/ SHANT Attestation Patient care was provided by Advanced Practice Provider:: No The physician spent face to face time with patient:: Yes Advanced Practice Provider documentation review:: Supervising physician onsite and consulted in the evaluation and care of this patient. The physician did have a face to face encounter with the patient. This chart was documented by the indicated scribe, (Ashley Ybarra, Harris stevens) and accurately reflects the services I performed and decisions made by me, Nato Rivas MD, as attested by the provider's signature.
[2019-07-05] MEDS ORDERED: TYLENOL PO PRN (17:03)
[2019-07-05] MEDS ORDERED: ZOFRAN IV PRN (17:03)
[2019-07-05] MEDS ORDERED: NITROGLYCERIN SL PRN (17:03)
--- NOTE | 2019-07-05 18:28 | HISTORY AND PHYSICAL ---
PRIMARY CARE PROVIDER: Dr. Sousa. CARVER AND CHECKERER SPECIALS: Dr. Colon. CHIEF COMPLAINT: Chest pain. HISTORY OF PRESENT ILLNESS: Ms. Slade is a 59-year-old female with a past medical history of atrial fibrillation, costochondritis, chronic kidney disease stage 5 on hemodialysis, hypertension, hyperlipidemia, GERD, diabetes mellitus type 2, migraines, and TIA 3 years ago. She came in complaining of chest pain from dialysis. She was given Maalox, and they gave her some fluids back, and she was sent to the ED to be evaluated. She has had 2 sets of negative cardiac enzymes and 2 EKGs that did not show any ST or T wave changes. Her chest pain is reproducible. She reports it goes from the epigastric area to under the left breast. It was relieved with a nitroglycerin patch; however, her pain came back. We will place her on observation status and trend 2 more sets of cardiac enzymes. All other laboratory data was essentially unremarkable. PAST MEDICAL HISTORY: Per HPI. PAST SURGICAL HISTORY: Right shunt that is still maturing. Left shunt that did not work. Hysterectomy and a right chest Vas-Cath. FAMILY HISTORY: Notable for heart disease in first-degree relatives as well as diabetes on mother's side. Father with unknown. Mother after having her gallbladder removed. of unknown causes. SOCIAL HISTORY: No tobacco, alcohol or illicit drug use. ALLERGIES: Metformin, Protonix, and IV iron. MEDICATIONS: Home medications are currently being compiled. REVIEW OF SYSTEMS: Twelve-point review of systems completely negative except for those mentioned in HPI. PHYSICAL EXAMINATION: VITAL SIGNS: Temperature is 97.2, heart rate 61, respirations 18, blood pressure 158/77, O2 is 98% on room air. GENERAL: Ms. Slade is a pleasant 59-year-old female who is sitting up in the stretcher in no acute distress. HEENT: Atraumatic, normocephalic. PERRL. NECK: Supple. Trachea midline. CARDIOVASCULAR: S1, S2 appreciated. No murmurs, gallops, or rubs noted. No JVD. RESPIRATORY: Lung sounds clear bilaterally. She does have tenderness in the epigastric area that is reproducible. ABDOMEN: Soft, nontender, nondistended. Positive bowel sounds, 4 quadrants LOWER EXTREMITIES: Generalized edema bilaterally. NEUROLOGIC: No focal deficits noted. SKIN: Warm, dry and intact. LABORATORY DATA: White count 9, hemoglobin and hematocrit 12 and 38, platelet count is 1900. Sodium 137, potassium 4.5, BUN 612, creatinine 3.4, blood glucose is 151. CKs 60 in 43. Both sets of troponins were 28. ProBNP of 10 80. Chest x-ray shows no evidence of acute disease. Two EKGs showed normal sinus rhythm. ASSESSMENT AND PLAN: 1. Atypical chest pain, probable costochondritis. She has had it in the past. The pain is reproducible. We will continue to trend 2 more sets of cardiac enzymes and place her on observation status. 2. History of paroxysmal atrial fibrillation. We will continue to monitor on telemetry. 3. End-stage renal disease on hemodialysis. She is currently stable with her creatinine, and fluid volume status looks okay. She did have hemodialysis today. Electrolytes and acid base are acceptable. 4. Hypertension. 5. Hyperlipidemia. 6. Gastroesophageal reflux disease. 7. Type 2 diabetes. Will continue with pattern blood sugars and sliding scale. 8. Transient ischemic attack 3 years ago. 9. Further recommendations to follow physician evaluation, laboratory and diagnostic data. Dictated by HERMELINDO Reyes for Phillip Miramontes MD
[2019-07-05] MEDS: HUMALOG SUBQ SCH ×2 (19:03→20:55)
[2019-07-06] MEDS: HUMALOG SUBQ SCH (06:17)
[2019-07-06] MEDS ORDERED: PRILOSEC PO SCH (07:00)
--- NOTE | 2019-07-06 07:21 | Diag Imaging Result Doc PS360 ---
EXAM: CHEST-PORTABLE 07/06/2019 HISTORY: Chest Pain TECHNIQUE: AP portable at 0620 COMMENT: There is a double-lumen catheter in the right internal jugular with its tip in the right atrium. The lungs are not as well-expanded as on the previous study of 07/05/2019. Considering differences in technique and inspiration there has been no appreciable change. IMPRESSION: Stable chest. Electronically signed by Riki Sewell 07/06/2019 7:19 AM
[2019-07-06 07:54] LABS: BASO# 0.01 X1000 (0.0-0.2); BASO% 0.1 % (0.0-0.8); EOS# 0.04 X1000 (0.0-0.7); EOS% 0.6 % (0.0-10.0); HEMATOCRIT 36.5 % (37.0-47.0); HEMOGLOBIN 11.2 g/dL (12.0-16.0); IMM GRAN# 0.02 X1000 (0.0-0.04); IMM GRAN% 0.3 % (0.0-0.5); LYMPH# 1.62 X1000 (1.2-3.4); LYMPH% 22.9 % (20.5-51.1); MCH 27.5 PG (27-31); MCHC 30.7 g/dL (33-37); MCV 89.5 FL (81-99); MONO# 0.54 X1000 (0.11-0.59); MONO% 7.6 % (1.7-9.3); MPV 11.1 FL (7.4-10.4); NEUT# 4.83 X1000 (1.4-6.5); NEUT% 68.5 % (42.2-75.2); PLT 204 X1000 (130-400); RBC 4.08 XMIL (4.2-5.4); RDW 15.1 % (11.5-14.5); WBC 7.06 X1000 (4.8-10.8)
[2019-07-06 08:23] LABS: AGAP 14; ALB/GLOB RATIO 1.2; ALBUMIN 3.5 g/dL (3.5-5.0); ALKALINE PHOSPHATASE 98 U/L (32-104); BUN 21 mg/dL (8-22); CALCIUM 9.4 mg/dL (8.8-10.2); CHLORIDE 99 mmol/L (98-107); CHOLESTEROL 164 mg/dL (0-200); COSMO 283; CREATININE 5.5 mg/dL (0.5-0.9); ESTIMATED GFR 10; GLUCOSE 101 mg/dL (70-104); GOT 12 U/L (10-30); GPT 7 U/L (10-36); HDL 30 mg/dL (45-65); LDL 109 mg/dL; POTASSIUM 5.3 mmol/L (3.5-5.1); SODIUM 140 mmol/L (136-145); TCO2 27 mmol/L (25-35); TOTAL BILIRUBIN 0.24 mg/dL (0.20-1.00); TOTAL PROTEIN 6.4 g/dL (6.3-8.3); TRIGLYCERIDES 126 mg/dL (35-135); VLDL 25 mg/dL
--- NOTE | 2019-07-06 08:30 | EKG Report ---
Test Performed on : 07/06/2019 05:29:06 AM Test Reason : CP Blood Pressure : / mmHG Vent. Rate : 063 BPM Atrial Rate : 063 BPM P-R Int : 140 ms QRS Dur : 082 ms QT Int : 472 ms P-R-T Axes : 026 -05 048 degrees QTc Int : 483 ms Normal sinus rhythm. Normal ECG When compared with ECG of 05-JUL-2019 13:22, (Unconfirmed) No significant change was found Confirmed by Aren Jackson MD ([id number]) on 07/06/2019 7:39:04 PM
[2019-07-06] MEDS ORDERED: ASPIRIN PO SCH (09:00)
[2019-07-06 12:01] VITALS: BP 179/56
--- NOTE | 2019-07-06 16:35 | DISCHARGE SUMMARY ---
ADMISSION DATE: 07/05/2019 DISCHARGE DATE: 07/06/2019 DISCHARGE DIAGNOSES: 1. Chest pain. 2. Likely costochondritis. 3. End-stage renal disease. 4. Hypertension. 5. Hyperlipidemia. 6. Gastroesophageal reflux disease. 7. Diabetes. 8. History of transient ischemic attack. HOSPITAL COURSE: The patient presented initially complaining of left-sided chest pain which started on dialysis. He was given Maalox and nitroglycerin, which improved things. Initial EKG and troponins were unremarkable. The patient's pain resolved but then reoccurred. On repeat EKG,there still no concerning changes but it was decided to put her in observation overnight. Serial troponins remained negative. The patient's pain again improved. On initial exam, it was noted the patient's pain was pretty significantly reproducible with palpation of the left lateral lower sternal border. Several years back, she had another admission with chest pain that was thought to be with costochondritis. I suspect this is more of the same. The patient's other lab work was unremarkable. Chest x-ray x2 showed no acute process. Her further troponins overnight remained negative and BNP was elevated but stable from previous. She was diagnosed costochondritis and discharged home to follow up with PCP and Nephrology. Also discussed following up with her manager trade to discuss the possibility of potentially repeating her stress test. The last one she has in our system was about 2-1/2 years ago. Of note, that stress test was unremarkable. The patient is on a blood thinner and so it was thought she might have a history of atrial fibrillation, but when patient was questioned the patient stated that she was on that because of issues with clotting in her dialysis access and never had history of atrial fibrillation that she was aware of. PHYSICAL EXAMINATION: Discharge Vital Signs: Temperature 98.2 degrees, pulse 69, respirations 19, blood pressure 123/48, O2 saturation 98% on room air. DISCHARGE DIET: Renal, diabetic. DISCHARGE MEDICATIONS: Aspirin, clonidine, Norvasc, omeprazole, lisinopril, linagliptin, Lantus, Eliquis, [place] and Zofran as previously prescribed. FOLLOWUP AND PLAN: The patient discharging home to follow up with PCP, Nephrology, and Cardiology. The patient is take Tylenol as needed for likely costochondritis. TIME SPENT: Greater than 30 minutes spent arranging discharge and counseling the patient.
--- NOTE | 2019-07-06 17:19 | ECHO REPORT ---
ORDER DATE: 07/05/2019 ECHOCARDIOGRAPHIC MEASUREMENTS: 1. Interventricular septum 1.7 cm. 2. Left ventricular posterior wall 1.4 cm. 3. Diastolic diameter 4.3 cm. 4. Left atrium 3.7 cm. 5. Aorta 3.0 cm. 6. Mitral valve was normal. 7. Tricuspid valve was normal. 8. Aortic valve leaflets are trileaflet. 9. Pulmonic valve was normal. 10. Normal left ventricular cavity size. Concentric left ventricular hypertrophy. Estimated ejection fraction of 65% to 70%. Normal right ventricular cavity size and function. 11. There is mild tricuspid regurgitation. Peak velocity across the tricuspid valve was 3 m/sec. 12. Pulmonary artery systolic pressure of 46 mmHg. 13. There is mild mitral regurgitation. There is grade 1 diastolic dysfunction. 14. Peak velocity across the aortic valve less than 2 m/sec. There is no aortic stenosis or regurgitation. 15. There is no pericardial effusion or obvious intracardiac mass or thrombus seen. 16. Hyperdynamic left ventricular systolic function noted. cc: Yoan Yates MD
== END 2019-07-06 13:19 | disposition home or self-care (01) ==
LOC: SUPCPDRO → EDIPHOLD 09:53 → ED 09:53 → 3N 19:40
PROVIDERS: ATTEND Internal Medicine